=== PATIENT | male | born 1990 | race African-American/Black ===

== ENCOUNTER 2023-08-18 07:18 | Emergency (ER) | payer OTHER, SELFPAY ==
--- NOTE | ~2023-08-18 | CT_ITS ---
EXAMINATION: CT facial bones w con DATE: 08/18/2023 08:34 INDICATION: Dental infection, root canal yesterday TECHNIQUE: Computed tomography (CT) of the facial bones and maxillofacial region was performed with 7 5 cc of Omnipaque 350 intravenous contrast. The dose-length product (DLP) was 427.34 mGy-cm. Automate d exposure control and iterative reconstruction technique were employed. COMPARISON: None. FINDINGS: There appear to be periapical abscesses of the right first and second molars with eruption through the maxilla into the maxillary soft tissues at the second premolar. There is adjacent right f acial soft tissue swelling without discrete abscess identified. There is near complete opacification of the ethmoidal air cells and right sphenoid sinus. There is moderate opacification of the remaining paranasal sinuses. No facial fracture is identified. The globes and orbits are normal. IMPRESSION: 1. . Apical abscesses of the right first and second premolars with interruption into the maxillary so ft tissues at the second premolar. No discrete soft tissue abscess identified. Reviewed, dictated and finalized at location B. ON LINER IMPRESSION: 1. . Apical abscesses of the right first and second premolars with interruption into the maxillary soft tissues at the second premolar. No discrete soft tissu e abscess identified.
[2023-08-18 07:22] VITALS: BP 130/72; PULSE 70; RESP 16; TEMP 36.5; O2SAT 100
[2023-08-18 07:27] VITALS: BP 135/79; PULSE 71; RESP 16; TEMP 37; O2SAT 99
--- NOTE | 2023-08-18 07:54 | ED.DENTAL ---
HPI - Dental/Oral General Chief complaint: Dental/Oral Stated complaint: facial swelling, recent root canal Time Seen by Provider: 08/18/23 07:38 Source: patient and family Limitations: no limitations History of Present Illness HPI Narrative: patient is a 32-year-old male presents to the emergency department accompanied by his mother for right falling. Patient states this swelling started yesterday and he went to his dentist who performed incision and drainage of the right upper posterior region and was told to come to the emergency department if it seemed like the swelling is spreading towards his eye and notes that today when he woke up it seemed like the swelling was worse and started to spread towards his eye. Patient admits to being on amoxicillin that was started yesterday and has received 3 total doses with this 3rd dose this morning. Patient denies any recent injuries, fever, difficulty swallowing, dysphonia, eye pain, vision changes, ear pain, cough, nausea, vomiting. Patient is to some slight pain over his right superior posterior comes 3 patient denies any drainage or discharge or blood coming from his gums. Related Data Allergies Allergy/AdvReac Type Severity Reaction Status Date / Time nickel Allergy Rash Verified 08/18/23 07:32 Review of Systems Review of Systems: A 10 system review of systems was completed on the patient and is negative except for what is stated in the HPI. Nursing and ancillary documentation was reviewed. PMFSH Comments At time of signature, I have reviewed and agree with nursing past medical, surgical, social and family history unless otherwise noted. Please see the nursing chart for further information. There is no relevant family history pertinent to the presenting complaint. Exam Narrative: CONST: No acute distress. Well nourished. HENMT: Head is normocephalic and atraumatic. Moist mucous membranes. No posterior oropharynx erythema. Uvula without deviation or edema. Soft palate without swelling. No sublingual brawny edema or tongue elevation. No periapical tooth swelling or pus expression, no active oral bleeding. No tonsil exudates. Mild right facial swelling of the maxillary region with scant involvement of the right inferior eyelid. No maxillary sinus tenderness to palpation. EYES: No conjunctival icterus, injection, or pallor. PERRL. Extraocular motions intact. NECK: No meningeal signs. No palpable cervical lymphadenopathy. RESP: Able to speak in full sentences. Normal respiratory effort. CTAB. CARDIO: Regular rate. Regular rhythm. 2+ DP and radial pulses bilaterally. GI: Nondistended. No tenderness to palpation. Soft. SKIN: No rashes or lesions noted on exposed skin. NEURO: Oriented x3. Moves all extremities. EXTREM/MSK/BACK: No pedal edema. PSYCH: Normal affect. HENMT: Teeth image: 1. Dental earl present, no tenderness to palpation, mild overlying gingival erythema without palpable fluctuance or discharge or bleeding. Course Vital Signs Vital signs: Vital Signs Temperature 97.7 F 08/18/23 07:22 Pulse Rate 70 08/18/23 07:22 Respiratory Rate 16 08/18/23 07:22 Blood Pressure 130/72 08/18/23 07:22 Pulse Oximetry 100 08/18/23 07:22 Temperature 98.6 F 08/18/23 07:27 Pulse Rate 62 08/18/23 08:37 Respiratory Rate 15 08/18/23 08:37 Blood Pressure 128/89 08/18/23 08:37 Pulse Oximetry 100 08/18/23 08:37 Oxygen Delivery Room Air 08/18/23 07:27 MDM - Dental/Oral MDM Narrative Medical decision making narrative: Patient presents with the above complaint. Initial vitals are remarkable for no significant abnormalities. Physical examination as noted above. Plan discussed: Laboratory analysis, CT facial with contrast, Unasyn IV piggyback, Motrin, 1 L bolus IV fluids, ice pack to the area swelling and elevation of the head of the bed. Should seizure making was performed regarding obtaining further workup versus anti
--- NOTE | 2023-08-18 08:20 | PC.NURSE ---
Pt to CT scan at this time.
[2023-08-18 08:26] LABS: Basophils Percent Auto 0.7 % (0.2-1.2); Eosinophils Absolute Auto 0.4 K/mm3 (0-0.3); Eosinophils Percent Auto 6.9 % (0-4.4); Hematocrit 40.3 % (42.0-52.0); Hemoglobin 13.1 g/dL (14.0-18.0); Immature Granulocyte Absolute 0.01 K/mm3 (0.00-0.031); Immature Granulocyte Percent A 0.2 % (0-0.5); Lymphocytes Percent Auto 28.1 % (18.3-44.2); Mean Corpuscular HGB Conc 32.5 g/dl (32-36); Mean Corpuscular Hemoglobin 29.6 pg (26-34); Mean Platelet Volume 9.9 fl (7.4-10.4); Monocytes Absolute Auto 0.5 K/mm3 (0.1-0.6); Monocytes Percent Auto 8.3 % (2.6-8.5); Neutrophils Absolute Auto 3.4 K/mm3 (1.3-6.7); Neutrophils Percent Auto 55.8 % (45.5-73.1); Platelet Count Result 195 k/mm3 (150-375); Red Blood Count 4.43 M/mm3 (4.6-6.20); Red Cell Distribution Width 13.1 % (11.5-14.5); White Blood Count 6.1 K/mm3 (4.5-10.0)
[2023-08-18] MEDS: IBUPROFEN 600 MG TABLET PO (08:35)
[2023-08-18] MEDS: SODIUM CHLORIDE 0.9% IV 1,000 ML 999 ML IV CONT (08:36)
[2023-08-18] MEDS: AMPICILLIN SULB 3 GM/NS 100 ML 3 GM/100 ML VIAL IVPB (08:36)
[2023-08-18 08:37] VITALS: BP 128/89; PULSE 62; RESP 15; O2SAT 100
[2023-08-18 08:37] LABS: Estimated CRCL calculation 89 ml/min; Estimated Glomerular Filt Rate > 60
[2023-08-18 08:55] LABS: Alanine Aminotransferase 21 U/L (6-50); Albumin Level 3.6 g/dL (3.5-5.1); Alkaline Phosphatase 66 U/L (38-126); Anion Gap 4 mmol/L (8-16); Aspartate Amino Transferase 28 U/L (17-59); Bilirubin,Total 0.7 mg/dL (0.2-1.3); Blood Urea Nitrogen 9 mg/dL (9-20); Calcium 8.7 mg/dL (8.4-10.2); Carbon Dioxide 28 mmol/L (22-30); Chloride 107 mmol/L (98-107); Estimated CRCL calculation 110 ml/min; Estimated Glomerular Filt Rate > 60; Glucose 95 mg/dL (65-110); Potassium 3.6 mmol/L (3.4-5.0); Sodium 139 mmol/L (137-145)
[2023-08-18 10:38] VITALS: BP 122/75; PULSE 64; RESP 15; O2SAT 99
== END 2023-08-18 10:39 | disposition home or self-care (01) ==
PROVIDERS: Emergency Provider Student in an Organized Health Care Education/Training Program
DX: K04.7 Periapical abscess without sinus (principal)
CPT/HCPCS: 36415; 70487; 80053; 85025; 96365; 99284; A9270; J0295; J7030; Q9967

== ENCOUNTER 2023-09-01 10:09 | Emergency (ER) | payer OTHER, SELFPAY ==
--- NOTE | ~2023-09-01 | XR_ITS ---
EXAMINATION: XR lumbar spine 2-3V DATE: 09/01/2023 12:06 INDICATION: Low back pain TECHNIQUE: Anteroposterior and lateral views of the lumbar spine, and cone-down lateral view of the l umbosacral junction were obtained. COMPARISON: None. FINDINGS: No fracture, dislocation, or subluxation. There is mild loss of intervertebral disc space h eight at L5 on S1. The vertebral body heights are maintained. The paravertebral soft tissues are unre markable. Phleboliths are noted in the left pelvis. IMPRESSION: 1. No acute osseous abnormality. Reviewed, dictated and finalized at location B. [employer]
[2023-09-01 10:16] VITALS: BP 126/71; PULSE 55; RESP 18; TEMP 36.5; O2SAT 94
[2023-09-01] MEDS: KETOROLAC (*BKC) 60 MG/2 ML VIAL IM (12:14)
--- NOTE | 2023-09-01 12:49 | ED.BACK ---
HPI - Back Pain/Injury General Chief Complaint: Back Pain/Injury Stated Complaint: R BACK INJURY Time Seen by Provider: 09/01/23 10:50 History of Present Illness HPI Narrative: Patient is a 32-year-old male who presents ER with low back pain. Right-sided greater than left. He was pulling a box off a shelf when he had sudden pain because the boxes heavier than he thought. Pain has increased over last day. Worse with bending forward standing back up. No radiation down the leg. No saddle anesthesia. No difficulty with urination/defecation. No fevers or chills. Related Data Allergies Allergy/AdvReac Type Severity Reaction Status Date / Time nickel Allergy Rash Verified 09/01/23 11:19 Review of Systems Constitutional: Constitutional: Reports no additional constitutional complaints Genitourinary: Genitourinary: Reports no additional male genitourinary complaints Musculoskeletal: Musculoskeletal: Reports back pain, Denies arthralgias and Denies joint swelling Neurologic: Reports system reviewed and no additional complaints, except as documented PMFSH Past Medical History Medical History (Updated 09/01/23 @ 12:58 by Rico Davalos MD) Healthy adult male Surgical History Surgical History (Updated 09/01/23 @ 12:58 by Rico Davalos MD) No history of previous surgery Exam Narrative: GENERAL: Well-appearing, well-nourished, and in no acute distress. HEAD: Normocephalic, atraumatic. ENT: Mucous membranes moist. back: No midline tenderness of the T/L spine. Paraspinal tenderness bilaterally at L4 but worse on the right side. EXTREMITIES: Normal range of motion. No edema. SKIN: Warm, dry, no rash. NEURO: Alert and oriented x3. PSYCH: Normal mood and affect. Course Course Emergency Course: Toradol for pain here. Imaging without acute fracture. Appropriate for discharge home with anti-inflammatories and muscle relaxers. Vital Signs Vital signs: Vital Signs Temperature 97.7 F 09/01/23 10:16 Pulse Rate 55 L 09/01/23 10:16 Respiratory Rate 18 09/01/23 10:16 Blood Pressure 126/71 09/01/23 10:16 Pulse Oximetry 94 09/01/23 10:16 Temperature 97.7 F 09/01/23 10:16 Pulse Rate 55 L 02/21/24 10:16 Respiratory Rate 18 09/01/23 10:16 Blood Pressure 126/71 09/01/23 10:16 Pulse Oximetry 94 09/01/23 10:16 MDM - Back Pain/Injury Imaging Data Radiologist's impression: ITS Impressions Lumbar Spine X-Ray 09/01/23 12:23 IMPRESSION: 1. No acute osseous abnormality. Discharge Plan Discharge Clinical Impression: Strain of lumbar region Patient Disposition: Home, Self-Care Condition: Stable Instructions: Acute Low Back Pain (ED), Lower Back Exercises (ED) Additional Instructions: Please return to the emergency department if you develop severe pain that is not controlled by pain medications or if you are unable to walk because of pain or weakness. Return to the emergency department immediately if you develop fevers, loss of bowel or bladder control (dribbling of urine or having accidents you wouldn't normally have), inability to urinate, numbness of your genital or anal area, or weakness/numbness of your legs or arms as these could all be signs of a serious medical emergency. Prescriptions: New cyclobenzaprine 10 mg tablet 10 mg PO TID PRN (Reason: muscle spasm) Qty: 20 0RF naproxen 375 mg tablet 375 mg PO BID Qty: 14 0RF No Action acetaminophen 500 mg tablet 500 mg PO Q6H PRN (Reason: pain) Qty: 30 0RF amoxicillin-pot clavulanate 875-125 mg tablet 1 tablet PO Q12H 10 Days Qty: 20 0RF Follow-up/Referrals: Caesar Capone MD [Physician] - 1 Week UNKNOWN,DOCTOR [Primary Care Provider] -
== END 2023-09-01 13:15 | disposition home or self-care (01) ==
PROVIDERS: Emergency Provider Emergency Medicine
DX: S39.012A Strain of muscle, fascia and tendon of lower back, initial encounter (principal); X50.0XXA Overexertion from strenuous movement or load, initial encounter
CPT/HCPCS: 72100; 96372; 99283; J1885

== ENCOUNTER 2023-09-10 08:19 | Emergency (ER) | payer OTHER, SELFPAY ==
[2023-09-10 08:35] VITALS: BP 132/78; PULSE 70; RESP 16; TEMP 36.6; O2SAT 95
--- NOTE | 2023-09-10 08:39 | ED.GENADULT ---
HPI - General Adult General Chief complaint: Back Pain/Injury Stated complaint: back pain Time Seen by Provider: 09/10/23 08:28 History of Present Illness HPI narrative: 32-year-old male presenting to the emergency department for evaluation of persistent right paraspinal muscle tightness. Patient reports he had a muscular back injury a few weeks ago and was initially seen in the emergency department. Patient did have follow-up with his occupational health physician yesterday and was cleared to return back to duty. Patient states he is still having some right paraspinal muscle spasm that is worsened with lifting. Patient denies any associated numbness or weakness but patient is requesting light duty since heavy lifting is still exacerbating his back pain. Related Data Allergies Allergy/AdvReac Type Severity Reaction Status Date / Time nickel Allergy Rash Verified 09/01/23 11:19 Review of Systems Review of Systems: All systems reviewed & are unremarkable except as noted in HPI and below PMFSH Past Medical History Medical History (Updated 09/10/23 @ 08:49 by Montana Garcia MD) Healthy adult male Surgical History Surgical History (Updated 09/01/23 @ 12:58 by Rico Davalos MD) No history of previous surgery Exam Narrative: APPEARANCE: Well appearing, no pain, no distress, well-nourished. HEAD: normocephalic, atraumatic. EYES: PERRLA/EOMI, conjunctivae clear. NOSE: Normal no drainage NECK: Supple. No adenopathy, no masses. RESPIRATORY: Airway patent, respirations nonlabored. Clear to auscultation bilaterally, no rales, rhonchi, wheezing. CARDIOVASCULAR: Regular rate and rhythm without murmurs rubs or gallops. ABDOMINAL: Soft, nontender, nondistended, normal bowel sounds MUSCULOSKELETAL: Right paraspinal muscular tenderness with no midline tenderness to palpation NEURO: Alert. Cranial nerves II through XII intact. Good gait. Good coordination SKIN: Warm, dry. Normal Color Course Course Emergency Course: Patient was provided additional Flexeril and encouraged close follow-up with his occupational physician Vital Signs Vital signs: Vital Signs Temperature 98 F 09/10/23 08:35 Pulse Rate 70 09/10/23 08:35 Respiratory Rate 16 09/10/23 08:35 Blood Pressure 132/78 09/10/23 08:35 Pulse Oximetry 95 09/10/23 08:35 Temperature 98 F 09/10/23 08:35 Pulse Rate 70 09/10/23 08:35 Respiratory Rate 16 09/10/23 08:35 Blood Pressure 132/78 09/10/23 08:35 Pulse Oximetry 95 09/10/23 08:35 Medical Decision Making MDM Narrative Medical decision making narrative: 32-year-old male present to the emergency department for evaluation of back pain. Patient did have reproducible muscle spasm and muscular tenderness. Patient was restarted on his cyclobenzaprine encouraged to have close follow-up with occupational health. Patient's neuro exam was negative, no concern for skeletal injury. Vital Signs Vital Signs: Vital Signs Temperature 98 F 09/10/23 08:35 Pulse Rate 70 09/10/23 08:35 Respiratory Rate 16 09/10/23 08:35 Blood Pressure 132/78 09/10/23 08:35 Pulse Oximetry 95 09/10/23 08:35 Temperature 98 F 09/10/23 08:35 Pulse Rate 70 09/10/23 08:35 Respiratory Rate 16 09/10/23 08:35 Blood Pressure 132/78 09/10/23 08:35 Pulse Oximetry 95 09/10/23 08:35 Discharge Plan Discharge Clinical Impression: Back pain Patient Disposition: Home, Self-Care Condition: Stable Instructions: Antibiotic Form Additional Instructions: Continue Tylenol and ibuprofen for pain. Cyclobenzaprine as directed for muscle spasm. Avoid heavy lifting until cleared by your occupational health physician. If you have any worsening symptoms please call or return to the emergency department. Prescriptions: New cyclobenzaprine 10 mg tablet 10 mg PO BID PRN (Reason: muscle spasm) Qty: 14 0RF No Action cyclobenzaprine 10 mg tablet 10 mg
== END 2023-09-10 09:15 | disposition home or self-care (01) ==
PROVIDERS: Emergency Provider Emergency Medicine
DX: M54.9 Dorsalgia, unspecified (principal)
CPT/HCPCS: 99283

== ENCOUNTER 2023-11-02 13:43 | Emergency (ER) | payer OTHER, SELFPAY ==
--- NOTE | ~2023-11-02 | XR_ITS ---
EXAMINATION: XR chest 2V 11/02/2023 15:22 INDICATION: Shortness of breath PROCEDURE: 2 view chest COMPARISON: No prior studies for comparison. FINDINGS: The lungs are clear. The cardiomediastinal silhouette is within normal limits. There are no pleural effusions. There is no pneumothorax suspected. IMPRESSION: 1: NO ACUTE CARDIOPULMONARY DISEASE. Reviewed, dictated and finalized at location B.
[2023-11-02 13:46] VITALS: BP 133/79; PULSE 58; RESP 20; TEMP 36.8; O2SAT 100
--- NOTE | 2023-11-02 14:42 | ED.SOB ---
HPI - SOB/Dyspnea General Chief Complaint: Shortness of Breath/Dyspnea Stated Complaint: SUDDEN ONSET DYSPNEA Time Seen by Provider: 11/02/23 14:24 History of Present Illness HPI Narrative: Patient is the healthy 32-year-old male, frequent marijuana user here with shortness of breath. 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 He notes that if felt like he was taking a lot of short quick breath having difficulty taking big breaths or exhaling. He does note that he was wheezing. He went outside, had minimal improvement of his symptoms an EMS was called by his work. On EMS arrival patient had a significant wheeze, was given a DuoNeb in route and a dose of Solu-Medrol. Patient notes symptoms have significantly improved. He denies any cough, congestion, fever, chills. No recent sick contacts. He notes he was feeling like his normal self when he went into work today. He is unsure if he had any asthma issues when he was a child. Related Data Allergies Allergy/AdvReac Type Severity Reaction Status Date / Time nickel Allergy Rash Verified 09/01/23 11:19 Review of Systems Review of Systems: All systems reviewed & are unremarkable except as noted in HPI and below PMFSH Past Medical History Medical History (Updated 11/02/23 @ 15:47 by Carolyn Blackmon MD) Healthy adult male Surgical History Surgical History (Updated 09/01/23 @ 12:58 by Rico Davalos MD) No history of previous surgery Exam Narrative: GENERAL: Well-appearing, well-nourished, and in no acute distress. HEAD: Normocephalic, atraumatic. EYES: PERRLA and EOMI. ENT: Nares clear. Mucous membranes moist. NECK: Supple. CHEST: Clear to auscultation. No respiratory distress. No wheeze present. HEART: Regular rate and rhythm. Normal peripheral pulses. ABDOMEN: Soft, nontender, nondistended. EXTREMITIES: Normal range of motion. No edema. SKIN: Warm, dry, no rash. NEURO: No focal deficits. Alert and oriented x3. PSYCH: Normal mood and affect. Course Course Emergency Course: Chart review performed. Patient here with shortness of breath. He reportedly was having some wheezing when EMS arrived, received a neb and solumedrol prior to arrival. Patient seen evaluated, nontoxic appearing. Appears to be in no respiratory distress, O2 saturation of 100%. Will do chest x-ray, anticipate discharged. CXR negative. Patient reevaluated, continues to be well appearing with no shortness of breath. Suspect a component of bronchospasm today either due to possible allergies or allergen exposure at work. Will give albuterol inhaler to use over the next few days for shortness of breath or recurrent wheeze. Will refer to on-call primary care doctor. The results of pertinent diagnostic studies and exam findings were discussed. The patient?s provisional diagnosis and plan of care were discussed with the patient and present family. The patient and/or present family expressed understanding of the diagnosis and plan. The nurse was instructed to provide written instructions and appropriate follow-up information. The patient understands their need and responsibility to obtain additional follow-up as instructed. The risks of medications administered and prescribed were discussed with the patient and family present. Vital Signs Vital signs: Vital Signs Temperature 98.2 F 11/02/23 13:46 Pulse Rate 58 L 11/02/23 13:46 Respiratory Rate 20 11/02/23 13:46 Blood Pressure 133/79 11/02/23 13:46 Pulse Oximetry 100 11/02/23 13:46 Oxygen Delivery Room Air 11/02/23 13:46 Temperature 98.2 F 11/02/23 13:46 Pulse Rate 78 11/02/23 15:57 Respiratory Rate 16 11/02/23 15:57 Blood Pressure 129/86 11/02/23 15:57 Pulse Oximetry 98 11/02/23 15:57 Oxygen Delivery Room Air 11/02/23 13:59 MDM - SOB/Dyspnea Imaging Data Radiologist
[2023-11-02 15:57] VITALS: BP 129/86; PULSE 78; RESP 16; O2SAT 98
== END 2023-11-02 15:57 | disposition home or self-care (01) ==
PROVIDERS: Emergency Provider Student in an Organized Health Care Education/Training Program; Referring Provider Emergency Medicine
DX: J98.01 Acute bronchospasm (principal)
CPT/HCPCS: 71046; 99283

== ENCOUNTER 2024-01-28 02:22 | Emergency (ER) | payer OTHER, SELFPAY ==
--- NOTE | ~2024-01-28 | XR_ITS ---
Clinical Indication: Congestion PA and lateral views of the chest: Comparison: 11/02/2023 Findings: The lungs are clear, without evidence of focal consolidation or pleural effusion. Cardiome diastinal silhouette is within normal limits. Bones and soft tissues are unremarkable. Impression: Normal chest. Reviewed, dictated and finalized at location . Impression: Normal chest.
--- NOTE | 2024-01-28 04:16 | ED.GENADULT ---
HPI - General Adult General Chief complaint: Upper Respiratory Infection History of Present Illness HPI narrative: patient is a 33-year-old gentleman who presents emergency department with chief complaint of upper respiratory symptoms. Patient reports that for more than 2 weeks he has had nasal congestion reports that he feels as though at times his breathing cuts off particularly whenever he sleeps. The patient has been seen at [place] and did not get anything done there the patient states that he has not followed up with his primary care provider Related Data Allergies Allergy/AdvReac Type Severity Reaction Status Date / Time nickel Allergy Rash Verified 09/01/23 11:19 Review of Systems Review of Systems: A 10 system review of systems was completed on the patient and is negative except for what is stated in the HPI. Nursing and ancillary documentation was reviewed. PMFSH Past Medical History Medical History Healthy adult male Surgical History Surgical History No history of previous surgery Exam Narrative: GENERAL: Well-appearing, well-nourished, and in no acute distress. HEAD: Normocephalic, atraumatic. EYES: PERRLA and EOMI. ENT: Nares clear, no rhinorrhea or epistaxis. Mucous membranes moist. NECK: Supple. CHEST: Clear to auscultation. No respiratory distress. HEART: Regular rate and rhythm. No murmur heard. Normal peripheral pulses. ABDOMEN: Soft, nontender, nondistended, normal active bowel sounds. EXTREMITIES: Normal range of motion. No edema. SKIN: Warm, dry, no rash. NEURO: No focal deficits. Alert and oriented x3. PSYCH: Normal mood and affect. Course Vital Signs Vital signs: Vital Signs Pulse Oximetry 98 01/28/24 04:24 Oxygen Delivery Room Air 01/28/24 04:24 Pulse Oximetry 98 01/28/24 04:24 Oxygen Delivery Room Air 01/28/24 04:24 Medical Decision Making [facility] Narrative Medical decision making narrative: differential diagnosis includes bronchitis, pneumonia upper respiratory infection chest x-ray showed no focal infiltrate COVID flu and RSV were ordered Vital Signs Vital Signs: Vital Signs Pulse Oximetry 98 01/28/24 04:24 Oxygen Delivery Room Air 01/28/24 04:24 Pulse Oximetry 98 01/28/24 04:24 Oxygen Delivery Room Air 01/28/24 04:24 Lab Data Labs: Lab Results 01/28/24 Range/Units 03:30 Influenza A (RT-PCR) Negative (Negative) Influenza B (RT-PCR) Negative (Negative) RSV (RT-PCR) Negative (Negative) SARS-CoV-2 RNA (RT-PCR) Negative (Negative) Discharge Plan Discharge Clinical Impression: Sinusitis Qualifiers: Sinusitis location: unspecified location Chronicity: acute Recurrence: non-recurrent Qualified Code(s): J01.90 - Acute sinusitis, unspecified Patient Disposition: Home, Self-Care Condition: Stable Instructions: Antibiotic Form, Sinusitis (ED) Prescriptions: New amoxicillin-pot clavulanate 875-125 mg tablet 1 tablet PO Q12H 10 Days Qty: 20 0RF prednisone 20 mg tablet 40 mg PO DAILY 5 Days Qty: 10 0RF No Action cyclobenzaprine 10 mg tablet 10 mg PO TID PRN (Reason: muscle spasm) Qty: 20 0RF naproxen 375 mg tablet 375 mg PO BID Qty: 14 0RF albuterol sulfate 90 mcg/actuation HFA aerosol inhaler 2 puff inhalation QID PRN (Reason: shortness of breath or wheezing) Qty: 6.7 0RF acetaminophen 500 mg tablet 500 mg PO Q6H PRN (Reason: pain) Qty: 30 0RF amoxicillin-pot clavulanate 875-125 mg tablet 1 tablet PO Q12H 10 Days Qty: 20 0RF cyclobenzaprine 10 mg tablet 10 mg PO BID PRN (Reason: muscle spasm) Qty: 14 0RF Follow-up/Referrals: Caesar Capone MD [Physician] - UNKNOWN,DOCTOR [Primary Care Provider] - Time of Disposition: 04:42
[2024-01-28 04:24] VITALS: O2SAT 98
[2024-01-28 04:27] LABS: Influenza A QL RT-PCR Negative (Negative); Influenza B QL RT-PCR Negative (Negative); RSV RNA, RT-PCR Negative (Negative); SARS-CoV-2 RNA PCR Negative (Negative)
[2024-01-28 04:47] VITALS: BP 131/82; PULSE 60; RESP 19; O2SAT 97
== END 2024-01-28 04:49 | disposition home or self-care (01) ==
PROVIDERS: Emergency Provider Emergency Medicine
DX: J01.90 Acute sinusitis, unspecified (principal); Z20.822 Contact with and (suspected) exposure to COVID-19
CPT/HCPCS: 71046; 87637; 99283

== ENCOUNTER 2024-07-11 01:55 | Emergency (ER) | payer SELFPAY ==
--- NOTE | ~2024-07-11 | XR_ITS ---
Clinical Indication: Cough PA and lateral views of the chest: Comparison: 01/28/2024 Findings: The lungs are clear, without evidence of focal consolidation or pleural effusion. Cardiome diastinal silhouette is within normal limits. Bones and soft tissues are unremarkable. Impression: Normal chest. Reviewed, dictated and finalized at location . LATIVE EFFECTS ANALYST Impression: Normal chest.
[2024-07-11 02:40] LABS: Strep Group A RT-PCR NOT DETECTED (Negative)
[2024-07-11 02:51] LABS: Influenza A QL RT-PCR Negative (Negative); Influenza B QL RT-PCR Negative (Negative); RSV RNA, RT-PCR Negative (Negative); SARS-CoV-2 RNA PCR Negative (Negative)
[2024-07-11 05:35] VITALS: BP 129/80; PULSE 71; RESP 16; TEMP 36.5; O2SAT 96
[2024-07-11 06:35] VITALS: O2SAT 98
--- NOTE | 2024-07-11 08:08 | ED_ITS ---
HPI - URI/Sore Throat General Chief Complaint: Upper Respiratory Infection Stated Complaint: dry cough x 1 week Time Seen by Provider: 07/11/24 08:06 Source: patient and other Mode of arrival: ambulatory Limitations: no limitations History of Present Illness HPI Narrative: Patient presents with report of dry cough x1 week and nasal congestion of approximately 5 months duration. He though his symptoms might be due to allergies and has been taking Mucinex. Then he was prescribed sterois and antibiotics given concern for sinusitis and he states he improved with that but his symptoms came back. Took a home covid and flu test which were negative. No fever. No underlying respiratory condition like asthma. N Related Data Allergies Allergy/AdvReac Type Severity Reaction Status Date / Time nickel Allergy Rash Verified 07/11/24 08:00 [facility] Past Medical History Medical History Healthy adult male Surgical History Surgical History No history of previous surgery Exam Narrative: GENERAL: Well-appearing, well-nourished, and in no acute distress although appears acutely unwell (non-toxic). HEAD: Normocephalic, atraumatic. No pain with percussion of sinuses. EYES: Non injected, non icteric ENT: No rhinorrhea or epistaxis. Slight congestion in very superior aspect of left naris. No polyps or friable mucosa. NECK: Supple. CHEST: Speaking in full sentences. No respiratory distress. Slight expiratory wheeze on exam, best appreciated on the left. HEART: Regular rate and rhythm. . ABDOMEN: Soft, nondistended. EXTREMITIES: Normal range of motion. No lower extremity edema. SKIN: Warm, dry, no rash. NEURO: No focal deficits. Alert and oriented x3. PSYCH: Normal mood and affect. Course Vital Signs Vital signs: Vital Signs Temperature 97.7 F 07/11/24 05:35 Pulse Rate 71 07/11/24 05:35 Respiratory Rate 16 07/11/24 05:35 Blood Pressure 129/80 07/11/24 05:35 Pulse Oximetry 96 07/11/24 05:35 Temperature 98.1 F 07/11/24 08:50 Pulse Rate 66 07/11/24 08:50 Respiratory Rate 19 07/11/24 08:50 Blood Pressure 121/78 07/11/24 08:50 Pulse Oximetry 97 07/11/24 08:50 Oxygen Delivery Room Air 07/11/24 06:35 MDM - URI/Sore Throat MDM Narrative Medical decision making narrative: Patient presents with a dry cough x1 week as well as nasal congestion for approximately 5 months. In the emergency department they are afebrile with vital signs within normal limits. Work up generally unremarkable. He does have some wheezes on exam, primarily on the left. Will give DuoNeb treatment as well as a one time dose of IM steroid in the ED and cough medicine. We discussed various cough medications and their role/limited efficacy. Will treat his cough as bronchitis given no radiographic evidence of pneumonia. Will prescribed various medications for symptoms including albuterol inhaler for wheeze. Encouraged to follow up with PCP in the outpatient setting for his chronic nasal congestion if it persists after these symptoms are acutely treated. Provided referral contact information for one. Discharged in stable condition. Differential Diagnosis Differential diagnosis: Likely upper respiratory infection, sinusitis, viral infection, bronchitis, influenza and other (seasonal/environmental allergies; pneumonia) Lab Data Attestation: I reviewed the patient's lab results. Labs: Lab Results 07/11/24 Range/Units 02:08 Influenza A (RT-PCR) Negative (Negative) Influenza B (RT-PCR) Negative (Negative) RSV (RT-PCR) Negative (Negative) SARS-CoV-2 RNA (RT-PCR) Negative (Negative) Group A Strep (PCR) Not detected (Negative) Imaging Data Radiologist's impression: Impressions Chest X-Ray 07/11/24 06:23 Impression: Normal chest. Discharge Plan Discharge Clinical Impression: Bronchitis with wheezing, Chronic nasal congestion Patient Disposition: Home, Self-Care Condition: Stable Instructions: Antibiotic Form, Decongestant/Expectorant (By mouth), Acute Bronchitis (ED), Wheezing (ED) Additional Instructions: As we discussed, you tested negative for strep, influenza a, influenza B, COVID, and RSV. Your chest x-ray did not show a pneumonia. You have bronchitis with some evidence of wheezes. Take the medications as prescribed. For the chronic nasal congestion, follow-up with your primary care physician. If you do not have 1 the name of the doctors listed below. Return to the emergency department with any new or worsening symptoms. Rest and maintain your hydration in the interim. Patient Language: Citizen Of [place] Prescriptions: New ProAir RespiClick 90 mcg/actuation aerosol powdr breath activated 1 inh inhalation Q4-6H PRN (Reason: shortness of breath or wheezing) Qty: 1 0RF benzonatate 100 mg capsule 100 mg PO BID PRN (Reason: cough) Qty: 20 0RF dextromethorphan HBr 10 mg/5 mL liquid 10 mg PO QHS PRN (Reason: cough) Qty: 118 0RF guaifenesin 200 mg tablet 200 mg PO QID PRN (Reason: cough) Qty: 30 0RF No Action cyclobenzaprine 10 mg tablet 10 mg PO TID PRN (Reason: muscle spasm) Qty: 20 0RF naproxen 375 mg tablet 375 mg PO BID Qty: 14 0RF albuterol sulfate 90 mcg/actuation HFA aerosol inhaler 2 puff inhalation QID PRN (Reason: shortness of breath or wheezing) Qty: 6.7 0RF acetaminophen 500 mg tablet 500 mg PO Q6H PRN (Reason: pain) Qty: 30 0RF amoxicillin-pot clavulanate 875-125 mg tablet 1 tablet PO Q12H 10 Days Qty: 20 0RF cyclobenzaprine 10 mg tablet 10 mg PO BID PRN (Reason: muscle spasm) Qty: 14 0RF amoxicillin-pot clavulanate 875-125 mg tablet 1 tablet PO Q12H 10 Days Qty: 20 0RF prednisone 20 mg tablet 40 mg PO DAILY 5 Days Qty: 10 0RF Follow-up/Referrals: Caesar Capone MD [Physician] - UNKNOWN,DOCTOR [Primary Care Provider] - Stand Alone Forms: Work/School Release IP Time of Disposition: 08:22
[2024-07-11] MEDS: IPRATROPIUM 0.5 MG/ALBUTEROL SULFATE 2.5 MG AMPUL.NEB 3 ML INHALATION (08:32)
[2024-07-11 08:35] VITALS: PULSE 89; RESP 20
[2024-07-11 08:40] VITALS: PULSE 93; RESP 20
[2024-07-11] MEDS: guaiFENesin/CODEINE (*CRX) 200/20 MG 10 ML SYRUP PO (08:44)
[2024-07-11] MEDS: methylPREDNISolone SOD SUCC 125 MG VIAL IM (08:45)
[2024-07-11] MEDS: BENZONATATE 100 MG CAPSULE PO (08:49)
[2024-07-11 08:50] VITALS: BP 121/78; PULSE 66; RESP 19; TEMP 36.7; O2SAT 97
--- OUTSIDE RECORDS SUMMARY | 2024-07-18 02:28 | XMS_ITS | Clinical Summary ---
Author Organization [facility] Address [address] [place] [address] Care Team Providers Care Pipe Fitter Name Role Phone Caitlyn Bolden DO Primary Care Provider [phone]- [phone] Allergies Active Allergy Reactions Criticality Noted Date Comments Nickel Rash Medium 03/15/2022 Tree Nuts Itching Low 11/25/2023 Medications albuterol HFA (PROVENTIL HFA,VENTOLIN HFA,PROAIR HFA) 90 mcg/actuation inhaler Inhale 2 puffs every 4 (four) hours as needed for wheezing 1 each 3 Active cetirizine (ZyrTEC) 10 mg tablet Take 1 tablet (10 mg total) by mouth daily as needed for allergies (Postnasal drip, cough) 30 tablet 3 Active pseudoephedrine (SUDAFED) 30 mg tabletIndicatio ns:Nasal Congestion Take 1 tablet (30 mg total) by mouth every 6 (six) hours as needed for congestion (Postnasal drip) Do not take before bed. 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 Gender Identity Not on file Sexual Orientation Not on file Obstetrics History Last Filed Vital Signs Vital Sign Reading Time Taken Comments Blood Pressure 118/79 11/25/2023 10:07 AM CDT Pulse 65 11/25/2023 10:07 AM CDT Temperature 36.2 ??C (97.2 ??F) 11/25/2023 1 0:07 AM CDT Respiratory Rate 20 11/25/2023 10:0 7 AM CDT Oxygen Saturation 97% 01/27/2024 2:3 0 PM CDT albuterol neb with PFT per protocol Inhaled Oxygen Concentration - - Weight 73.1 kg (161 lb 3.2 oz) 11/25/2023 10:07 AM CDT Height 165.1 cm (5' 5 ) 11/11/2022 8:19 PM CDT Body Mass Index 26.83 11/11/2022 8:19 PM CDT Plan of Treatment Health Maintenance Due Date Last Done Comments Depression Screening 1992 Hepatitis C Screening 1992 Varicella Vaccines (1 of 2 - 13+ 2-dose series) 2005 Regular Well Visit/Exam 18-64 2010 DTaP/Tdap/Td Vaccine (7 - Td or Tdap) 04/27/2016 04/27/2006, 12/20/1997, 04/01/1994, Additional history exists Influenza Vaccine (#1) 2024 04/27/2006 HPV Vaccines Aged Out No longer eligi ble based on patient's age to complete this topic Pneumococcal vaccine <65 Aged Out No longer eligible based on patient's age to complete this topic Insurance [facility] Care Teams Pipe Fitter Relationship Specialty Start Date End Date Caitlyn Bolden DO [address] [place] [address] PCP - General Internal Medicine 01/04/21
--- OUTSIDE RECORDS SUMMARY | 2024-07-18 02:29 | XMS_ITS | Encounter Summary ---
Author Organization [facility] Address [address] [place] [address] Care Team Providers Care Wire Twister Name Role Phone Caitlyn Bolden DO Primary Care Provider +1- [phone] Reason for Visit * Reason Comments Groin Pain I don't know I thin k I was trying to be cute...I had unprotected sex, and now the tip [of my penis] is burning. Pt arrives to ED with complaints of penile pain, described as a burning sensation for approximately 4x days. Increased pain with urination. Denies any other acute complaints at this time such as penile discharge. 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 Gender Identity Not on file Sexual Orientation Not on file documented as of this encounter Last Filed Vital Signs Vital Sign Reading Time Taken Comments Blood Pressure 127/83 01/04/2021 8:59 AM CDT Pulse 62 01/04/2021 8:59 AM CDT Temperature 36.9 ??C (98.5 ??F) 01/04/2021 8:59 AM CD T Respiratory Rate 18 01/04/2021 8:59 AM CDT Oxygen Saturation 97% 01/04/2021 8:59 AM CDT Inhaled Oxygen Concentration - - Weight 76.6 kg (168 lb 14 oz) 01/04/2021 8:59 AM CDT Height 165.1 cm (5' 5 ) 01/04/2021 8:59 AM CDT Body Mass Index 28.1 01/04/2021 8:59 AM CDT documented in this encounter Discharge Instructions * Discharge Instructions* Selam Vaughn PA - 01/04/2021 9:44 AM CDT Take all mediation as directed. Return to ER immediately for any new or worsening symptoms. Follow-up as recommended is mandatory You MUST follow up for further evaluation of all laboratory findings. Have your physician obtain records from this visit and address all the incidental abnormal findings. This may include final results of lab testing, cultures, which may not have been available during the time of the visit. [facility] (Hepatitis C testing, HIV testing) [address] [place] [address], [place] [phone] [facility] (Hepatitis C testing, HIV testing) Walk in services, no residecne required, Fee, ID required [address], [place]. [phone] [facility] (Hepatitis C Testing, HIV testing) Appointments, fee, no residency, conventional/rapid testing [address], [place]. [phone] [facility] (HIV testing, Hepatitis testing, gardisil, , control, STDs) [address] [place]. [address] Appointments only, no residence required, fee, Picture ID [facility] [address], [place]. [phone] Appointment, fee, photo ID [facility] [address] [place]. [address] Appointment, fee, sliding scale, picture ID documented in this encounter Medications at Time of Discharge doxycycline hyclate 100 mg capsule Take 1 tablet/capsu le (100 mg total) by mouth 2 (two) times a day for 7 days 14 tablet 01/04/2021 01/11/2021 documented as of this encounter Ordered Prescriptions Prescription Sig Dispense Quantity Refills Last Filled Start Date End Date doxycycline hyclate 100 mg capsule Take 1 tablet/caps ule (100 mg total) by mouth 2 (two) times a day for 7 days 14 tablet 01/04/2021 01/11/2021 documented in this encounter Discharge Disposition Disposition Code Departure Means Destination Discharge to home or self care documented in this encounter ED Notes * Selam Vaughn PA - 01/04/2021 9:20 AM CDT HPI No chief complaint on file. HPI 9:21 AM Félix Fernandes is a 30 y.o. male presenting to the ED c/o STD testing. Pt had unprotected sex and has dysuria at tip of penis with urination. Denies any drainage or other symptoms Patient History: No past medical history on file. No past surgical history on file. No family history on file. Social History Tobacco Use ??? Smoking status: Not on file Substance Use Topics ??? Alcohol use: Not on file ??? Drug use: Not on file No current facility-administered medications for this encounter. No current outpatient medications on file. Review of Systems Review of Systems Constitutional: Negative for chills and fever. HENT: Negative for ear pain and sore throat. Eyes: Negative for pain and visual disturbance. Respiratory: Negative for cough and shortness of breath. Cardiovascular: Negative for chest pain and palpitations. Gastrointestinal: Negative for abdominal pain and vomiting. Genitourinary: Negative for dysuria and hematuria. Musculoskeletal: Negative for arthralgias and back pain. Skin: Negative for color change and rash. Neurological: Negative for seizures and syncope. All other systems reviewed and are negative. All systems reviewed and are neg or non contributory for this patients presentation today other than as stated in the HPI . Physical Exam ED Triage Vitals [01/04/21 0859] Temp Pulse Resp BP SpO2 36.9 ??C (98.5 ??F) 62 18 127/83 97 % Temp src Heart Rate Source Patient Position BP Location FiO2 (%) -- -- Sitting Right arm -- Physical Exam Vitals and nursing note reviewed. Constitutional: Appearance: He is well-developed. Comments: Pleasant male, no acute distress HENT: Head: Normocephalic and atraumatic. Eyes: Conjunctiva/sclera: Conjunctivae normal. Cardiovascular: Rate and Rhythm: Normal rate and regular rhythm. Heart sounds: Normal heart sounds. No murmur heard. Pulmonary: Effort: Pulmonary effort is normal. No respiratory distress. Breath sounds: Normal breath sounds. Abdominal: Palpations: Abdomen is soft. Tenderness: There is no abdominal tenderness. Musculoskeletal: Cervical back: Neck supple. Skin: General: Skin is warm and dry. Neurological: Mental Status: He is alert and oriented to person, place, and time. Procedures MDM Labs Reviewed - No data to display No orders to display BP 127/83 (BP Location: Right arm, Patient Position: Sitting) Pulse 62 Temp 36.9 ??C (98.5 ??F) Resp 18 Ht 165.1 cm (5' 5 ) Wt 76.6 kg (168 lb 14 oz) SpO2 97% BMI 28.10 kg/m?? ED Course: Treated for gonorrhea and chlamydia. All findings discussed with patient. Non toxic appearing, vitals stable. Patient stable for discharge home. Given return to ER precautions Disposition: home This examination was transcribed using the [employer] voice recognition system without human real estate appraiser supervisor. In an effort to expedite patient care, this report has not been adjusted for typographical, grammatical, and syntax by a trained medical scribe. Clinical Impression: STD (male) Selam Vaughn PA 01/04/21 1113 Cosigned by Rico Cotto DO at 01/05/2021 11:32 AM CDT documented in this encounter Plan of Treatment Not on file documented as of this encounter Procedures Procedure Name Priority Date/Time Associated Diagnosis Comments N. GONORRHOEAE/C. TRACHOMATIS AMPLIFICATION STAT 01/04/2021 9:29 AM CDT TRICHOMONAS VAGINALIS PCR STAT 01/04/2021 9:29 AM CDT documented in this encounter Results * (ABNORMAL) N. gonorrhoeae/C. trachomatis Amplification Urine (01/04/2021 9:29 AM CDT) Pathologist [facility] C. trachomatis Detected( A) Not Detected EILEEN SALINAS Comment:Testing performed by : [facility], [address] [place] [address]., [address] N. gonorrhoeae Detected( A) Not Detected EILEEN SALINAS Comment: Testing performed by the [facility]. This assay detects Chlamydia trachomatis and Neisseria gonorrhoeae by nucleic acid amplification testing (NAAT). This test is approved by the [facility] Food and Drug Administration and the performance characteristics have been verified by the laboratory. The performance characteristics of this test have not been evaluated in women or individuals less than 16 years of age. Testing performed by: [facility], [address] [place] [address]., [address] Urine (None) 01/04/2021 9:29 AM CDT 01/05/2021 9:18 PM CDT Sel[facility] MICROBIOLOGY - GENERAL O RDERABLES Final Result EILEEN SALINAS [facility] Department [place] [address] * Trichomonas vaginalis PCR Urine (01/04/2021 9:29 AM CDT) Pathologist [facility] Trichomonas DNA Not Detected Not Detected EILEEN SALINAS Comment: Interpretive Data Testing performed by [facility] using Nucleic Acid Amplification with the [employer] ([place] Xpert TV Assay. ??This assay detects DNA from Trichomonas vaginalis using Real-Time PCR. ??This test is cleared by the [facility] Food and Drug Administration for endocervical swabs, vaginal swabs, female urine (first-catch), and male urine (first-catch). ??The performance characteristics for these specimen types have been verified by the [facility]. ??Excess blood in specimens may be inhibitory and result in false negative results. ??The performance of this test has not been evaluated in women or individuals less than 18 years of age. Current Interpretive Data was last revised on 2019. Testing performed by: [facility], [address] [place]., [address] Urine 01/04/2021 9:29 AM CDT 01/04/2021 11:26 AM CDT us Selam [facility] MICROBIOLOGY - GENERAL O RDERABLES Final Result EILEEN [address] [facility] Department [place] [address] documented in this encounter Visit Diagnoses Diagnosis STD (male)- Primary documented in this encounter Administered Medications Inactive Administered Medications - up to 3 most recent administrations Medication Order MAR Action Action Date Dose Rate Site cefTRIAXone (ROCEPHIN) 250 mg/mL intramuscular injection 500 mg 500 mg, intramuscular, Once, On 01/04/21 at 0922, For 1 dose, Dilute vial with 1.8 mL of sterile water for a concentration of 250 mg/mL., Indications: Sexually Transmitted InfectionIndications:Sexuall y Transmitted Infection Given 01/04/2021 11:06 AM CDT 500 mg Right Deltoid lidocaine PF (XYLOCAINE) 10 mg/mL (1 %) preservative free injection - ADS Override Pull Starting on 01/04/21 at 1100, For 1 dose, Created by cabinet override Given 01/04/2021 11:07 AM CDT 50 mg Right Deltoid documented in this encounter Active and Recently Administered Medications Times are shown in CDT. Scheduled Medication Order 01/02/2021 01/03/2021 01/04/2021 cefTRIAXone (ROCEPHIN) 250 mg/mL intramuscular injection 500 mg (COMPLETED) 500 mg, intramuscular, Once, On 01/04/21 at 0922, For 1 dose, Dilute vial with 1.8 mL of sterile water for a concentration of 250 mg/mL., Indications: Sexually Transmitted Infection 1106 (Given - Provid er: Mehdi Quinn RN) No Frequency Medication Order 01/02/2021 01/03/2021 01/04/2021 lidocaine PF (XYLOCAINE) 10 mg/mL (1 %) preservative free injection - ADS Override Pull (COMPLETED) Starting on 01/04/21 at 1100, For 1 dose, Created by cabinet override 1107 (Given - Provid er: Mehdi Quinn RN) documented in this encounter Care Teams Wire Twister Relationship Specialty Start Date End Date Caitlyn Bolden DO [facility] [place], [place] [id number] PCP - General Internal Medicine 01/04/21 documented as of this encounter
--- OUTSIDE RECORDS SUMMARY | 2024-07-18 02:29 | XMS_ITS | Encounter Summary ---
Author Organization [facility] Address [address] [place] [address] Care Team Providers Care Exterior Work Helper Name Role Phone Unavailable Primary Care Provider Unavailabl e Encounter Details Date Type Department Care Team (Late st Contact Info) Description 11/30/2023 External Device Data [facility] ABSTRACTION Provider, Abstract NO ADDRESS ON FILE Social History Tobacco Use Types Packs/Day Years Used Date Smoking Tobacco: Never Assessed Sex and Gender Information Value Date Recorded Sex Assigned at Not on file Gender Identity Not on file Sexual Orientation Not on file documented as of this encounter Plan of Treatment Not on file documented as of this encounter Visit Diagnoses Not on filedocumented in this encounter
--- OUTSIDE RECORDS SUMMARY | 2024-07-18 02:29 | XMS_ITS | Encounter Summary ---
Author Organization [facility] Address [address] [place] [address] Care Team Providers Care Legal Transcriber Name Role Phone Unavailable Primary Care Provider Unavailabl e Encounter Details Date Type Department Care Team (Late st Contact Info) Description 11/16/2023 External Device Data [facility] ABSTRACTION Provider, Abstract [...]
--- OUTSIDE RECORDS SUMMARY | 2024-07-18 02:29 | XMS_ITS | Encounter Summary ---
Author Organization [facility] Healthcare Address [address] [place] [address] Care Team Providers Care Medical And Scientific Illustrator Name Role Phone Caitlyn Bolden DO Primary Care Provider [phone]- [phone] Reason for Referral * Procedure (Routine) - Closed Specialty Diagnoses / Procedures Referred By Contac t Referred To Contact Diagnoses SOB (shortness of breath) Wheezing Procedures Pulmonary Function Test -[facility]; Full PFT in PFT Lab w/Stress Ox/6 Min Walk Test Alexia Kong MD [address] [facility] [address] [place] [address] Phone: tel: fax: Referral ID Status Reason Start Date Expiration Date Visits Re quested Visits Authorized [id number] Closed 11/25/2023 12/24/2024 1 1 Reason for Visit * Reason Comments New Patient * Consultation (Routine) - Pending Review Specialty Diagnoses / Procedures Referred By Contac t Referred To Contact Pulmonary Disease / Pulmonology Diagnoses SOB (shortness of breath) Wheezing Caesar Capone MD [address] [place] [address] Phone: tel: fax: [facility] Medical [facility] Pulmonary [place] [address] [place] [address] [place] [id number] Phone: tel: fax: Referral ID Status Reason Start Date Expiration Date Visits Requested Visits Authorized [id number] Pending Review Specialty Services Required 11/08/2023 12/08/2024 1 1 Encounter Details Date Type Department Care Team (Late st Contact Info) Description 11/25/2023 10:00 AM CDT Office Visit [facility] Pulmonology [address] [facility] [address] [place] [address] Alexia Kong MD [address] [facility] [address] [place] [address] SOB (shortness of breath); Wheezing Social History Tobacco Use Types Packs/Day Years Used Date Smoking Tobacco: Never Smokeless Tobacco: Never Comments:Pt stated he smokes Marijuana Personal Safety Answer Date Recorded Getting School Help Needed Not on file 11/22 Sex and Gender Information Value Date Recorded Sex Assigned at Not on file 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 Gender Identity Not on file Sexual Orientation Not on file documented as of this encounter Last Filed Vital Signs Vital Sign Reading Time Taken Comments Blood Pressure 118/79 11/25/2023 10:07 AM CDT Pulse 65 11/25/2023 10:07 AM CDT Temperature 36.2 ??C (97.2 ??F) 11/25/2023 10:07 AM C DT Respiratory Rate 20 11/25/2023 10:07 AM CDT Oxygen Saturation 97% 11/25/2023 10:07 AM CDT Inhaled Oxygen Concentration - - Weight 73.1 kg (161 lb 3.2 oz) 11/25/2023 10:07 AM CDT Height - - Body Mass Index 26.83 11/11/2022 8:19 PM CDT documented in this encounter Progress Notes * Alexia Kong MD - 11/25/2023 10:00 AM CDT Images from the original note were not included. PULMONARY CLINIC NOTE Visit Date: 11/25/2023 INTERVAL HISTORY: Presents today for follow-up of new HPI: Patient is a 32 y.o. male who presented on 11/25/2023 for evaluation of dyspnea. Had some exposure to chemical fumes at work in October 2023. [facility] given breathing treatment and discharged with albuterol. Has morning and nightly chest tightness and dyspnea. Uses albuterol, helps sometimes No coughing or wheezing No rhinitis Exposure and Social History: Never smoker or vaping. Smokes marijuana few times per week. Social etoh. Works as warehouse director. No pets. Review of Systems: OBJECTIVE: Physical Exam: Vitals: 11/25/23 1007 BP: 118/79 BP Location: Right arm Patient Position: Sitting Pulse: 65 Resp: 20 Temp: 36.2 ??C (97.2 ??F) SpO2: 97% Weight: 73.1 kg (161 lb 3.2 oz) Respiratory: mostly clear Musculoskeletal/Extremities: No Cyanosis Data Review: Pulmonary function testing: ASSESSMENT AND PLAN Dyspnea and wheezing Possibly has asthma especially given he is got significant allergies though other etiologies also possible Continue p.r.n. albuterol for now Check PFT and labs Atopy and allergies Check IgE. Possibly add Singulair in the future Alexia Kong MD Pulmonary Medicine There may be syntax/grammatical errors in this note due to the use of voice recognition software. documented in this encounter Plan of Treatment Scheduled Orders Name Type Priority Associated Diagnoses Orde r Schedule CBC with auto differential Lab Routine SOB (shortness of breath) Wheezing Expected: 11/25/2023, Expires: 11/24/2024 IgE Lab Routine SOB (shortness of breath) Wheezing Expected: 11/25/2023, Expires: 11/24/2024 [id number] phenotype Lab Routine SOB (shortness of breath) Wheezing Expected: 11/25/2023, Expires: 11/24/2024 [id number]-[id number] Lab Routine SOB (shortness of breath) Wheezing Expected: 11/25/2023, Expires: 11/24/2024 Pro B-type natriuretic peptide Lab Routine SOB (shortness of breath) Wheezing Expected: 11/28/2023, Expires: 11/24/2024 documented as of this encounter Results * Pulmonary Function Test - (01/27/2024 2:44 PM CDT) FVC POST 4.54 L 01/27/2024 2:35 PM CDT [facility] FEV1 POST 3.46 L 01/27/2024 2:35 PM CDT [facility] [id number] 76.07 % 01/27/2024 2:35 PM CDT [facility] BQH40-37% POST 2.99 L/s 01/27/2024 2:35 PM CDT [facility] PEF POST 5.90 L/s 01/27/2024 2:35 PM CDT [facility] DLCOc SB 24.27 ml/(min*mm Hg) 01/27/2024 2:35 PM CDT [facility] DLCO/VA PRE 5.00 ml/(min*mm Hg*L) 01/27/2024 2:35 PM CDT [facility] VA 4.85 L 01/27/2024 2:35 PM CDT [facility] TLC PRE 5.48 L 01/27/2024 2:35 PM CDT [facility] VC PRE 4.11 L 01/27/2024 2:35 PM CDT [facility] IC PRE 3.08 L 01/27/2024 2:35 PM CDT [facility] FRC PL PRE 2.39 L 01/27/2024 2:35 PM CDT [facility] ERV PRE 1.02 L 01/27/2024 2:35 PM CDT [facility] RV PRE 1.37 L 01/27/2024 2:35 PM CDT [facility] RAW PRE 7.77 cmH2O*s/L 01/27/2024 2:35 PM CDT [facility] VTG 3.24 L 01/27/2024 2:35 PM CDT [facility] FVC PRE 3.73 L 01/27/2024 2:35 PM CDT [facility] FEV1 PRE 2.58 L 01/27/2024 2:35 PM CDT [facility] [id number] 69.20 % 01/27/2024 2:35 PM CDT [facility] CFH54-10% PRE 1.86 L/s 01/27/2024 2:35 PM CDT [facility] PEF PRE 5.90 L/s 01/27/2024 2:35 PM CDT [facility] Anatomical Region Laterality Modality PFT 01/27/2024 1:30 PM CDT Narrative 01/28/2024 12:17 PM CDT Spirometry data demonstrates obstructive ventilatory defect with a strong positive bronchodilator response. Lung volumes and DLCO are normal. 6 minute walk test - ambulatory O2 assessment study was performed. Patient maintained oxygen saturation within normal range and did not require supplemental oxygen with rest or ambulation. Electronically signed by Walter Velasquez MD, [facility] Pulmonary and Critical Care Medicine [facility] Medical Group us Alexia Kong MD PFT ORDERABLES Final Result documented in this encounter Visit Diagnoses Diagnosis SOB (shortness of breath) Shortness of breath Wheezing SOB (shortness of breath) Shortness of breath Wheezing documented in this encounter Orders Outpatient Referral Count Last Ordered Date Fir st Ordered Date AMB REFERRAL TO PULMONOLOGY 1 11/25/2023 documented in this encounter Care Teams Medical And Scientific Illustrator Relationship Specialty Start Date End Date Caitlyn Bolden DO [facility] [place] [address] PCP - General Internal Medicine 01/04/21 documented as of this encounter
--- OUTSIDE RECORDS SUMMARY | 2024-07-18 02:29 | XMS_ITS | Encounter Summary ---
Author Organization [facility] Healthcare Address [address] [place] [address] Care Team Providers Care Bow Stapler Name Role Phone Caitlyn Bolden DO Primary Care Provider [phone]- [phone] Reason for Referral * Procedure (Routine) - Closed Specialty Diagnoses / Procedures Referred By Andres perales Referred To Contact Diagnoses SOB (shortness of breath) Wheezing Procedures Pulmonary Function Test -[facility]; Full PFT in PFT Lab w/Stress Ox/6 Min Walk Test Alexia Kong MD [address] [facility] [address] [place] [place] [address] Phone: tel: fax: Referral ID Status Reason Start Date Expiration Date Visits Re quested Visits Authorized [id number] Closed 11/25/2023 12/24/2024 1 1 Reason for Visit * Procedure (Routine) - Closed Specialty Diagnoses / Procedures Referred By Andres perales Referred To Contact Diagnoses SOB (shortness of breath) Wheezing Procedures Pulmonary Function Test -[facility]; Full PFT in PFT Lab w/Stress Ox/6 Min Walk Test Alexia Kong MD [address] [facility] [address] [place] [place] [id number] Phone: tel: fax: Referral ID Status Reason Start Date Expiration Date Visits Re quested Visits Authorized [id number] Closed 11/25/2023 12/24/2024 1 1 Encounter Details Date Type Department Care Team (Latest Contact Info) Description 01/27/2024 1:20 PM CDT - 01/27/2024 11:59 PM CDT Hospital Encounter [facility] Respiratory [facility] [place] [address] SOB (shortness of breath); Wheezing Discharge Disposition: Discharge to home or self care Social History Tobacco Use Types Packs/Day Years Used Date Smoking Tobacco: Never Smokeless Tobacco: Never Comments:Pt stated he smokes Marijuana Personal Safety Answer Date Recorded Getting School Help Needed Not on file 11/22 Sex and Gender Information Value Date Recorded Sex Assigned at Not on file 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 Gender Identity Not on file Sexual Orientation Not on file documented as of this encounter Last Filed Vital Signs Vital Sign Reading Time Taken Comments Blood Pressure - - Pulse - - Temperature - - Respiratory Rate - - Oxygen Saturation 97% 01/27/2024 2:30 PM CDT albuterol neb with PFT per protocol Inhaled Oxygen Concentration - - Weight - - Height - - Body Mass Index - - documented in this encounter Medications at Time of Discharge cetirizine (ZyrTEC) 10 mg tablet Take 1 tablet (10 mg total) by mouth daily as needed for allergies (Postnasal drip, cough) 30 tablet 11/12/2022 pseudoephedrine (SUDAFED) 30 mg tabletIndication s:Nasal Congestion Take 1 tablet (30 mg total) by mouth every 6 (six) hours as needed for congestion (Postnasal drip) Do not take before bed. Can cause insomnia 15 tablet 11/12/2022 documented as of this encounter Discharge Disposition Disposition Code Departure Means Destination Discharge to home or self care documented in this encounter Progress Notes * Magui Woodruff, PLANNING SUPERVISOR - 01/27/2024 2:40 PM CDT Six minute walk test SPO2 = 95-97%. Not a fall risk. No O2 required. Walked 1030 feet and without any c/o sob. 01/27/24 1330 Resting Information Resting HR. 58 bpm Resting SPO2 97 % Oxygen Setting room air Ambulation Trials to Assess Desaturation to 88% Activity 1: Ambulated (feet) 1030 feet Oxygen Setting #1 room air SPO2 (%) #1 95 % Post Ambulation Assessment HR Post Assessment 90 bpm RR Post Assessment 16 breaths/m Post Assessment Recommendation No O2 required $ Home O2 Assessment Yes documented in this encounter Plan of Treatment Not on file documented as of this encounter Procedures Procedure Name Priority Date/Time Associated Diagnosis Comments PULMONARY FUNCTION TEST (PFT) Routine 01/27/2024 2:44 PM CDT SOB (shortness of breath) Wheezing documented in this encounter Results * Pulmonary Function Test - (01/27/2024 2:44 PM CDT) FVC POST 4.54 L 01/27/2024 2:35 PM CDT [facility] FEV1 POST 3.46 L 01/27/2024 2:35 PM CDT [facility] [id number] 76.07 % 01/27/2024 2:35 PM CDT [facility] KNP60-57% POST 2.99 L/s 01/27/2024 2:35 PM CDT [facility] PEF POST 5.90 L/s 01/27/2024 2:35 PM CDT [facility] DLCOc SB 24.27 ml/(min*mm Hg) 01/27/2024 2:35 PM CDT [facility] DLCO/VA PRE 5.00 ml/(min*mm Hg*L) 01/27/2024 2:35 PM CDT [facility] VA 4.85 L 01/27/2024 2:35 PM CDT [facility] TLC PRE 5.48 L 01/27/2024 2:35 PM CDT [facility] VC PRE 4.11 L 01/27/2024 2:35 PM CDT [facility] IC PRE 3.08 L 01/27/2024 2:35 PM CDT [facility] FRC PL PRE 2.39 L 01/27/2024 2:35 PM CDT [facility] ERV PRE 1.02 L 01/27/2024 2:35 PM CDT [facility] RV PRE 1.37 L 01/27/2024 2:35 PM CDT [facility] RAW PRE 7.77 cmH2O*s/L 01/27/2024 2:35 PM CDT [facility] VTG 3.24 L 01/27/2024 2:35 PM CDT [facility] FVC PRE 3.73 L 01/27/2024 2:35 PM CDT [facility] FEV1 PRE 2.58 L 01/27/2024 2:35 PM CDT [facility] [id number] 69.20 % 01/27/2024 2:35 PM CDT [facility] KMP72-60% PRE 1.86 L/s 01/27/2024 2:35 PM CDT [facility] PEF PRE 5.90 L/s 01/27/2024 2:35 PM CDT [facility] Anatomical Region Laterality Modality PFT 01/27/2024 1:30 [...] ambulation. Electronically signed by Walter Velasquez MD, FCCP Pulmonary and Critical Care Medicine [facility] Medical Group us Alexia Kong MD PFT ORDERABLES Final Result documented in this encounter Visit Diagnoses Diagnosis SOB (shortness of breath) Shortness of breath Wheezing documented in this encounter Care Teams Bow Stapler Relationship Specialty Start Date End Date Caitlyn Bolden DO [address] [place] [address] PCP - General Internal Medicine 01/04/21 documented as of this encounter
--- OUTSIDE RECORDS SUMMARY | 2024-07-18 02:29 | XMS_ITS | Encounter Summary ---
Author Organization [facility] Healthcare Address [address] [place] [address] Care Team Providers Care Dishwasher Preparer Name Role Phone Caitlyn Bolden DO Primary Care Provider [phone]- [phone] Encounter Details Date Type Department Care Team (Late st Contact Info) Description 11/13/2022 - 11/13/2022 1:09 AM CDT Emergency [facility] [address] [place] [address] Discharge Disposition: Incorrect Patient Social History Tobacco Use Types Packs/Day Years Used Date Smoking Tobacco: Never Assessed Personal Safety Answer Date Recorded Have you ever been in or are you currently in a harmful physical or emotional relationship or is someone making you feel afraid or unsafe? 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 Gender Identity Not on file Sexual Orientation Not on file documented as of this encounter Medications at Time of Discharge albuterol HFA (PROVENTIL HFA,VENTOLIN HFA,PROAIR HFA) 90 mcg/actuation inhaler Inhale 2 puffs every 4 (four) hours as needed for wheezing 1 each 11/12/2022 cetirizine (ZyrTEC) 10 mg tablet Take 1 [...] Discharge Disposition Disposition Code Departure Means Destination Incorrect Patient documented in this encounter Plan of Treatment Not on file documented as of this encounter Visit Diagnoses Not on filedocumented in this encounter Care Teams Dishwasher Preparer Relationship Specialty Start Date End Date Caitlyn Bolden DO [address] [place] [address] PCP - General Internal Medicine 01/04/21 documented as of this encounter
--- OUTSIDE RECORDS SUMMARY | 2024-07-18 02:29 | XMS_ITS | Encounter Summary ---
Author Organization [facility] Healthcare Address [address] [place] [address] Care Team Providers Care Autism Specialist Name Role Phone Caitlyn Bolden DO Primary Care Provider [phone] Reason for Visit * Reason Comments Shortness of Breath Encounter Details Date Type Department Care Team (Late st Contact Info) Description 11/11/2022 8:17 PM CDT - 11/12/2022 12:35 AM CDT Emergency [facility] Emergency Department [address] [place] [address] Shayla Carlos MD [address] [place] [address] Shortness of breath (Primary Dx); Acute cough Discharge Disposition: Discharge to home or self care Social History Tobacco Use Types Packs/Day Years Used Date Smoking Tobacco: Never Assessed Tobacco Cessation:Counseling Given: Not Answered Personal Safety Answer Date Recorded Have you ever been in or are you currently in a harmful physical or emotional relationship or is someone making you feel afraid or unsafe? 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 Gender Identity Not on file Sexual Orientation Not on file documented as of this encounter Last Filed Vital Signs Vital Sign Reading Time Taken Comments Blood Pressure 124/65 11/11/2022 11:00 PM CDT Pulse 57 11/12/2022 12:16 AM CDT Temperature 36.9 ??C (98.4 ??F) 11/11/2022 8:25 PM CD T Respiratory Rate 19 11/12/2022 12:16 AM CDT Oxygen Saturation 95% 11/12/2022 12:16 AM CDT Inhaled Oxygen Concentration - - Weight 77.1 kg (170 lb) 11/11/2022 8:19 PM CDT Height 165.1 cm (5' 5 ) 11/11/2022 8:19 PM CDT Body Mass Index 28.29 11/11/2022 8:19 PM CDT documented in this encounter Discharge Instructions * Discharge Instructions* Shayla Carlos MD - 11/12/2022 12:05 AM CDT Please return to the emergency department or call 911 if your shortness of breath returns, difficulty breathing. Return to the emergency department for chest pain, fever, coughing up blood, numbness or weakness, migratory pain or chest pain radiating to the back, leg swelling, vomiting blood, lightheadedness or any other new concerning symptoms. Please follow-up with your primary care provider in5-10 days. If you do not have a primary care provider you may make an appointment through the [facility] doctors access line at or make an appointment family physician or primary care provider @ [facility] [phone] * Attachments The following attachments cannot be sent through Care Everywhere. * Shortness of Breath (AfterCare(R) Instructions(ER/ED)) ([place]) documented in this encounter Medications at Time [...] tablet 11/12/2022 documented as of this encounter Ordered Prescriptions Prescription Sig Dispense Quantity Refills Last Filled Start Date End Date pseudoephedrine (SUDAFED) 30 mg tabletIndications: Nasal Congestion Take 1 tablet (30 mg total) by mouth every 6 (six) hours as needed for congestion (Postnasal drip) Do not take before bed. Can cause insomnia 15 tablet 11/12/2022 cetirizine (ZyrTEC) 10 mg tablet Take 1 tablet (10 mg total) by mouth daily as needed for allergies (Postnasal drip, cough) 30 tablet 11/12/2022 albuterol HFA (PROVENTIL HFA,VENTOLIN HFA,PROAIR HFA) 90 mcg/actuation inhaler Inhale 2 puffs every 4 (four) hours as needed for wheezing 1 each 11/12/2022 documented in this encounter Discharge Disposition Disposition Code Departure Means Destination Comment s Discharge to home or self care documented in this encounter ED Notes * Shayla Carlos MD - 11/11/2022 8:27 PM CDTAssociated Order(s): Critical Care Triage Chief Complaint: Chief Complaint Patient presents with Shortness of Breath Portions of the record may have been created with voice recognition software. Occasional wrong-word or '[id number]' substitutions may have occurred due to the inherent limitations of voice recognition software. Read the chart carefully and recognize, using context, where substitutions have occurred. H&P: Félix Fernandes is a 31 y.o. male with h/o smoking marijuana, but no tobacco use, no history ofasthma, presents for shortness of breath. Has had a cough for few days but today became short of breath and feels as though he can not breathe because there is mucus in the back of his throat. Cough is not productive. No sore throat. No fever. No vomiting. No chest pain. No hemoptysis. No leg pain or swelling Family history: No family history of early cardiac disease Social history: Marijuana use Additional Pertinent Past medical/past surgical/meds: Reports he is otherwise healthy Nursing Notes Reviewed. Physical Exam: ED Triage Vitals Temp Pulse Resp BP SpO2 05/03/23 2025 05/03/201811/11/22201811/11/22201811/11/222018 36.9 ??C (98.4 ??F) 61 22 128/84 91 % Temp src Heart Rate Source Patient Position BP Location FiO2 (%) 11/11/222024 -- -- -- -- Axillary Height Height Method Weight Weight Method 11/11/222018 -- 11/11/222018 -- 1.651 m (5' 5 ) 77.1 kg (170 lb) GENERAL APPEARANCE: Awake and alert. Initially tachypneic and intermittently holding his breath coughing. On re-evaluation the patient is calm and cooperative and satting well on room air. HEAD: Atraumatic. EYES: Sclera anicteric. EOMI. ENT: Tolerates saliva. Normal oropharynx. No stridor. No meningismus. Moist mucous membranes. NECK: Supple. Trachea midline. HEART: RRR. Radial pulses 2+. Occasionally noted to be bradycardic on the monitor. LUNGS: Initially tachypneic. But when patient was able to calm down and take deep breaths he had bilateral lung sounds that were CTAB. ABDOMEN: Soft. Non-tender. No guarding or rebound. EXTREMITIES: No acute deformities. No edema. Grossly symmetrical calves. SKIN: Initially the little bit diaphoretic, on re-evaluation: Warm and dry. NEUROLOGICAL: No gross facial drooping. Moves all 4 extremities spontaneously. Normal speech and mental status. No ataxia noted. Normal gait PSYCHIATRIC: Initially anxious affect, tachypneic, on re-evaluation he was much more calm. Not responding to internal stimuli. I have reviewed and interpreted all of the currently available lab results from this visit (if applicable): Labs Reviewed INFLUENZA A/B, RSV, AND COVID-19 PCR Result Value COVID-19 RNA Negative Influenza A RNA Negative Influenza B RNA Negative RSV RNA Negative Narrative: Is the Patient experiencing symptoms consistent with COVID?->Unknown Reason for testing?->Bed placement or semi-private room CBC WITH AUTO DIFFERENTIAL WBC 8.1 Hgb 14.9 Hct 44.4 Plt 237 MPV 10.5 RBC 5.06 MCV 87.7 MCH 29.4 MCHC 33.6 RDW CV 12.2 RDW SD 39.0 NRBC abs 0.00 COMPREHENSIVE METABOLIC PANEL Sodium 143 Potassium, pl 3.7 Chloride 106 CO2 26 Anion gap 12 BUN 12 Creatinine 1.22 Glucose 107 Calcium 9.7 Bilirubin, total 0.4 Protein, pl 7.5 Albumin 4.7 Alk phos 104 ALT 19 AST 36 D-DIMER, QUANTITATIVE D-Dimer <215 DIFFERENTIAL AUTO Neutrophil abs 4.3 Imm gran abs 0.0 Lymphocyte abs 2.7 Monocyte abs 0.5 Eosinophil abs 0.5 Basophil abs 0.1 Neutrophil pct 52.9 Imm gran pct 0.4 Lymphocyte pct 33.2 Monocyte pct 6.7 Eosinophil pct 5.8 Basophil pct 1.0 EGFR eGFR 82 BLOOD GAS, ARTERIAL Radiographs (if obtained): Report Reviewed: XR Chest 1 Vw Portable Final Result Six Minute Walk (Results Pending) EKG (if obtained): (All EKGs are interpreted by myself in the absence of a property supervisor) Normal sinus rhythm with a normal rate of 75 normal intervals normal axis normal ST segments and T-waves. Early report pattern. Impression: Normal EKG in this young man with his body habitus. No previous for comparison. Critical Care Performed by: Shayla Carlos MD Authorized by: Shayla Carlos MD Critical care provider statement: As reflected in the history, physical exam, orders, notes, and/or MDM, I was personally present while the patient was critically ill and provided critical care services for 31 minutes, excluding timeinvolved in separately billable procedures. Critical care was necessary to treat or prevent imminent or life- threatening deterioration of the following condition(s): severe respiratory condition Critical care was time spent by me providing the following: continuous telemetry, continuous pulse oximetry and serial bedside patient exams The patient was brought back to room 5, resuscitation room. Reportedly he was descending and placed on 2 L nasal cannula. Patient had present bilateral lung sounds and possibly end expiratory wheezing, no stridor, tolerating secretions, no meningismus, normal oropharynx. A bedside ultrasound showed bilateral lung sliding and RT was called to the bedside and a DuoNeb was started. Patient was given lorazepam and dexamethasone. But the dexamethasone he had a side effect, burning in the crotch and started screaming. However this quickly improved. I suspect the patient may be having a panic attack and they descending to the 90s maybe related to breath-holding. As I do not see physiologic reason on my exam that would explain his symptoms. Will obtain workup and continue to closely monitor. Chart/outside records review shows: History of chlamydia and gonorrhea 01/04/2021 ED course/MDM: External chart review: (details typically documented under ED workup or in chart/outside record review above in my note, if obtained) History obtained by: (Typically documented in the HPI section, sometimes in ED course when obtainedfrom additional historians but not at the initial time of patient presentation.) Discussion of management: (typically conversations time stamped and documented in ED course), Independent interpretation studies: (typically documented in ED course and please note that labs and Radiology reads obtained in the ED and listed above have been reviewed) Vitals: 11/11/22 2230 11/11/22 2300 11/11/22 2329 11/12/22 0016 BP: 108/86 124/65 Pulse: 51 59 56 57 Resp: 20 19 14 19 Temp: TempSrc: SpO2: 96% 97% 96% 95% Weight: Height: ED Course as of 11/12/22 0127 Time: 11/12 0000 Value: SpO2: 97 % Comment: Patient is now satting 98-100% on room air. He refused blood gas by RT By: Shayla Carlos MD MDM: 31-year-old male presenting to the emergency department with shortness of breath and cough, afebrile. Differential diagnosis: Bronchitis, pneumonia, pneumothorax, URI, allergies, reactive airway disease or asthma or COPD, PE, symptomatic anemia, DKA or metabolic acidosis, panic attack. Diagnostic tests and medications considered: No indication for CTA. At this time I am not convincedthe patient has pneumonia or requires antibiotics. He did respond well to treatment for reactive airway disease/asthma so he was given prescription for albuterol. Also given medications because he felt like he would like a postnasal drip that is causing this cough and make it so he could not breathe antihistamine and Sudafed. He was given dexamethasone here which may have also been 1 of the relieving factors of his symptoms. He was also given lorazepam because it seemed like there might be a anxiety component to everything that was going on. Shared decision-making: Patient felt improved and agreed with close outpatient follow-up Discharge instructions: The patient and I have discussed results, diagnosis and or diagnostic uncertainty and the need for follow-up. We have discussed follow- up instructions and return precautions, to which the patient verbalized understanding and agreement. Clinical Impression: 1. Shortness of breath 2. Acute cough Disposition: Discharge (Please note that portions of this note may have been completed with a voice recognition program. Geospatial Image Analyst errors occur. Please contact me for any clarification.) Shayla Carlos MD 11/12/22 0127 * Elayne Serrano RN - 11/11/2022 8:26 PM CDT Patient presents to ED for SOB and feeling of his throat closing up. Patient stated that hes been SOB for a couple days but now feels like its much worse and throat feels very swollen. Patient is very labored currently, trying to catch his breath, but seems like he struggling. Patient does not havea respiratory history. documented in this encounter Plan of Treatment Not on file documented as of this encounter Procedures Procedure Name Priority Date/Time Associated Diagnosis Comments XR CHEST 1 VIEW ED 11/11/2022 8:56 PM CDT ECG 12-LEAD STAT 11/11/2022 8:36 PM CDT INFLUENZA A/B, RSV, AND COVID-19 PCR Routine 11/11/2022 8:34 PM CDT EGFR STAT 11/11/2022 8:34 PM CDT DIFFERENTIAL AUTO STAT 11/11/2022 8:3 4 PM CDT CBC WITH AUTO DIFFERENTIAL STAT 11/11/2022 8:34 PM CDT D-DIMER, QUANTITATIVE STAT 11/11/2022 8:34 PM CDT COMPREHENSIVE METABOLIC PANEL STAT 11/11/2022 8:34 PM CDT NV CRITICAL CARE ILL/INJURED PATIENT INIT 30-74 MIN Routine 11/11/2022 8:27 PM CDT documented in this encounter Results * XR Chest 1 Vw Portable (11/11/2022 8:56 PM CDT) Anatomical Region Laterality Modality Body, Chest N/A Computed Radiogr aphy 11/11/2022 9:16 PM CDT Narrative 11/11/2022 9:16 PM CDT EXAM DESCRIPTION: ?? XR CHEST 1 VIEW REASON FOR STUDY: ?? Shortness of Breath. ??SOB and feeling of his throat closing up. Patient stated that hes been SOB for a couple days but now feels like its much worse and throat feels very swollen. Patient is very labored currently, trying to catch his breath, but seems like he struggling. ?? Patient does not have a respiratory history. smoker ? TECHNIQUE: ?? One ??radiographic view of the chest acquired. COMPARISON: ?? None available. FINDINGS: LUNGS/PLEURA: ?? No focal consolidation or pneumothorax. No pleural effusion. HEART/MEDIASTINUM: ?? Heart size is normal. Normal mediastinal and hilar contours. HARDWARE/LINES/TUBES: ?? None. BONES: ?? No acute findings. OTHER: ?? No other significant finding. IMPRESSION: ??No acute cardiopulmonary abnormality. THIS IS AN ELECTRONICALLY VERIFIED FINAL REPORT 11/11/2022 9:16 PM - Electronically signed by ??Adonis June M.D. MF: [email or web address] D: ??11/11/2022 9:16 PM T: ??11/11/2022 9:16 PM Report ID: [id number] Reading Location: ??[id number] Procedure Note Adonis June, DO - 11/11/2022 EXAM DESCRIPTION: XR CHEST 1 VIEW REASON FOR STUDY: Shortness of Breath. SOB and feeling of his throat closing up. Patient stated that hes been SOB for a couple days but nowfeels like its much worse and throat feels very swollen. Patient is very labored currently, trying to catch his breath, but seems like he struggling.Patient does not have a respiratory history. smoker TECHNIQUE: One radiographic view of the chest acquired. COMPARISON: None available. FINDINGS: LUNGS/PLEURA: No focal consolidation or pneumothorax. No pleuraleffusion. HEART/MEDIASTINUM: Heart size is normal. Normal mediastinal and hilar contours. HARDWARE/LINES/TUBES: None. BONES: No acute findings. OTHER: No other significant finding. IMPRESSION: No acute cardiopulmonary abnormality. THIS IS AN ELECTRONICALLY VERIFIED FINAL REPORT 11/11/2022 9:16 PM - Electronically signed by Adonis June M.D. MF: [email or web address] Report ID: [id number] Reading Location: [place] [address] [place] Shayla Carlos MD IMG XR PROCEDURES Final Result * ECG 12 lead (11/11/2022 8:36 PM CDT) 11/11/2022 8:36 PM CDT Narrative [facility] - 11/12/2022 7:29 AM CDT Vent Rate: 75 bpm RR Interval: 797 msec NV Interval: 144 msec QRS Duration: 90 msec QT Interval: 365 msec QTC Interval: 394 msec P-R-T [place]: 72 - 91 - 46 degrees SINUS RHYTHM WITH MARKED SINUS ARRHYTHMIA BORDERLINE RIGHT AXIS DEVIATION ??[QRS AXIS > 90] EARLY REPOLARIZATION ??[ST ELEVATION WITH NORMALLY INFLECTED T-WAVE] Baseline artifact No previous EKG for comparison Electronically Signed By: Dr Mehdi Viera us Shayla Carlos MD ECG ORDERABLES Final Re sult [facility] * eGFR (11/11/2022 8:34 PM CDT) eGFR 82 mL/min/1. 73 m2 [facility] ([place]) Comment: Interpretive Data Reference Interval Normal ?>/= 90 mL/min/1.73m2 Mildly decreased* ? 60 - 89 mL/min/1.73m2 Mildly to moderately decreased ?45 - 59 mL/min/1.73m2 Moderately to severely decreased ??30 - 44 mL/min/1.73m2 Severely decreased ?15 - 29 mL/min/1.73m2 Kidney Failure ?< 15 ??mL/min/1.73m2 *Relative to young adult level Estimated glomerular filtration rate is determined by the 2020 CKD-EPI equation recommended by the National Kidney Foundation (A Unifying Approach to GFR Estimation: Recommendations of the NKF-ASK Task Force on Reassessing the Inclusion of Race in Diagnosing Kidney Disease, JASN 2020). The CKD-EPI equation should not be used for patients with unstable renal function and has not been validated in children and those over 70. Current interpretive data was last reviewed 2021. Blood 11/11/2022 8:34 PM CDT 11/11/2022 8:39 PM CDT us Shayla Carlos MD LAB BLOOD ORDERABLES Fin al Result [facility] ([place] 1 [facility] Department [place] [address] * Differential, auto (11/11/2022 8:34 PM CDT) Neutrophil abs 4.3 1.7 - 6.5 K/cumm [facility] ([place]) Imm gran abs 0.0 0.0 - 0.1 K/cumm [facility] ([place]) Lymphocyte abs 2.7 0.8 - 3.3 K/cumm [facility] ([place]) Monocyte abs 0.5 0.2 - 0.8 K/cumm [facility] ([place]) Eosinophil abs 0.5 0.0 - 0.5 K/cumm [facility] ([place]) Basophil abs 0.1 0.0 - 0.1 K/cumm [facility] ([place]) Neutrophil pct 52.9 % [facility] ([place]) Comment: Interpretive Data Percent cell count reference ranges are not reported, since discordance with absolute values may lead to misinterpretation of CBC data. Current Interpretive Data was last revised on 2017. Imm gran pct 0.4 % [facility] ([place]) Comment: Interpretive Data Percent cell count reference ranges are not reported, since discordance with absolute values may lead to misinterpretation of CBC data. Current Interpretive Data was last revised on 2017. Lymphocyte pct 33.2 % [facility] ([place]) Comment: Interpretive Data Percent cell count reference ranges are not reported, since discordance with absolute values may lead to misinterpretation of CBC data. Current Interpretive Data was last revised on 2017. Monocyte pct 6.7 % [facility] ([place]) Comment: Interpretive Data Percent cell count reference ranges are not reported, since discordance with absolute values may lead to misinterpretation of CBC data. Current Interpretive Data was last revised on 2017. Eosinophil pct 5.8 % [facility] ([place]) Comment: Interpretive Data Percent cell count reference ranges are not reported, since discordance with absolute values may lead to misinterpretation of CBC data. Current Interpretive Data was last revised on 2017. Basophil pct 1.0 % [facility] ([place]) Comment: Interpretive Data Percent cell count reference ranges are not reported, since discordance with absolute values may lead to misinterpretation of CBC data. Current Interpretive Data was last revised on 2017. Blood 11/11/2022 8:34 PM CDT 11/11/2022 8:39 PM CDT us Shayla Carlos MD LAB BLOOD ORDERABLES Fin al Result [facility] ([place]) 1 [facility] Department [place] [address] * D-dimer, quantitative (11/11/2022 8:34 PM CDT) D-Dimer <215 <=499 ng/mL [facility] ([place]) Comment: Interpretive data FDA approved the D-dimer, in conjunction with a low or moderate pretest probability score, to exclude venous thromboembolic events (VTE) (PE and DVT) in outpatients when the D-dimer result is < 500 ng/ml FEU. ?? Evidence supports using an age-adjusted D-dimer cut-off for outpatients older than 50 (age x 10) to improve specificity without sacrificing sensitivity. Example: age 68, VTE cut-off 680 ng/ml FEU. References; Schouten HT et al. Brit Med J. 2013;346:f2492. Debbie et al. Annals Int Med. 2015;163:701-11. Current interpretive data was last revised on 2019. Blood 11/11/2022 8:34 PM CDT 11/11/2022 8:39 PM CDT Shayla Carlos MD LAB BLOOD ORDERABLES Fin al Result [facility] ([place]) 1 [facility] Department [place] [address] * Comprehensive metabolic panel (11/11/2022 8:34 PM CDT) Sodium 143 135 - 145 mmol/L [facility] ([place]) Potassium, pl 3.7 3.3 - 4.9 mmol/L [facility] ([place]) Chloride 106 97 - 110 mmol/L [facility] ([place]) CO2 26 22 - 32 mmol/L [facility] ([place]) Anion gap 12 2 - 15 mmol/L [facility] ([place]) BUN 12 8 - 25 mg/dL [facility] ([place]) Creatinine 1.22 0.80 - 1.30 mg/dL [facility] ([place]) Glucose 107 70 - 199 mg/dL [facility] ([place]) Comment: Interpretive Data Fasting glucose >/= 126 mg/dl is diagnostic for diabetes. ?? Fasting is defined as no caloric intake for at least 8 hours. Fasting glucose between 100 mg/dl to 125 mg/dl is diagnostic of prediabetes. In a patient with classic symptoms of hyperglycemia or hyperglycemic crisis, a random glucose >/= 200 mg/dl is diagnostic for diabetes. In the absence of unequivocal hyperglycemia, results should be confirmed by repeat testing. The classification and Diagnosis of Diabetes Diabetes Care 2021; 46: S19-S40. Current interpretive data was last revised 2022. Calcium 9.7 8.5 - 10.3 mg/dL [facility]) Bilirubin, total 0.4 0.1 - 1.2 mg/dL [facility] ([place]) Protein, pl 7.5 6.5 - 8.5 g/dL [facility]) Albumin 4.7 3.5 - 5.0 g/dL [facility] ([place]) Alk phos 104 40 - 130 Units/L [facility] ([place]) ALT 19 7 - 55 Units/L [facility] ([place]) AST 36 10 - 50 Units/L [facility] ([place]) Comment:Slightly Hemolyzed S pecimen Blood 11/11/2022 8:34 PM CDT 11/11/2022 8:39 PM CDT us Shayla Carlos MD LAB BLOOD ORDERABLES Fin al Result [facility] ([place]) 1 [facility] Department [place] [address] * CBC with auto differential (11/11/2022 8:34 PM CDT) WBC 8.1 3.8 - 9.9 K/cumm [facility] ([place]) Hgb 14.9 13.0 - 17.5 g/dL [facility] ([place]) Hct 44.4 38.9 - 50.3 % [facility] ([place]) Plt 237 150 - 400 K/cumm [facility] ([place]) MPV 10.5 9.1 - 12.3 fL [facility] ([place]) RBC 5.06 4.30 - 5.80 M/cumm [facility] ([place]) MCV 87.7 81.3 - 96.4 fL [facility] ([place]) MCH 29.4 27.1 - 33.3 pg [facility] ([place]) MCHC 33.6 32.3 - 35.7 g/dL [facility] ([place]) RDW CV 12.2 11.1 - 14.9 % [facility] ([place]) RDW SD 39.0 35.7 - 48.1 fL [facility] ([place]) NRBC abs 0.00 0.00 - 0.01 K/cumm [facility] ([place]) Blood 11/11/2022 8:34 PM CDT 11/11/2022 8:39 PM CDT us Shayla Carlos MD LAB BLOOD ORDERABLES Fin al Result [facility] ([place] 1 [facility] Department [place] [address] * Influenza A/B, RSV, and COVID-19 PCR Nasopharyngeal (11/11/2022 8:34 PM CDT) COVID-19 RNA Negative Negative [facility] ([place]) Influenza A RNA Negative Negative [facility] [place]) Influenza B RNA Negative [facility] ([place]) RSV RNA Negative Negative [facility] ([place]) Comment: Interpretive data: This test is performed using the [employer] Xpert Xpress CoV-2/Flu/RSV plus assay. This is a multiplex, real-time reverse transcriptase PCR assay intended for the qualitative detection of nucleic acid from SARS-CoV-2, influenza A, influenza B, and respiratory syncytial virus. This assay has been reviewed by the FDA for Emergency Use Authorization (EUA). The performance characteristics have been verified by the performing laboratory. Results must be considered in the clinical context, and a negative result does not rule out infection. Interpretive Data last revised 2021. Nasopharyngeal 11/11/2022 8: 34 PM CDT 11/11/2022 8:39 PM CDT Narrative [facility] ([place] - 11/11/2022 9:23 PM CDT Is the Patient experiencing symptoms consistent with COVID?->Unknown Reason for testing?->Bed placement or semi-private room us Shayla Carlos MD LAB MICROBIOLOGY - GENER AL ORDERABLES Final Result [facility] [place] [facility] Department [place] [address] * [place] CRITICAL CARE ILL/INJURED PATIENT INIT 30-74 MIN (11/11/2022 8:27 PM CDT) Narrative Shayla Carlos MD - 11/11/2022 8:27 PM CDT Shayla Carlos MD ? 11/12/2022 ??1:27 AM Critical Care Performed by: Shayla Carlso MD Authorized by: Shayla Carlos MD ?? Critical care provider statement: As reflected in the history, physical exam, orders, notes, and/or MDM, I was personally present while the patient was critically ill and provided critical care services for 31 minutes, excluding time involved in separately billable procedures. ??Critical care was necessary to treat or prevent imminent or life-threatening deterioration of the following condition(s): ?? severe respiratory condition ??Critical care was time spent by me providing the following: ? continuous telemetry, continuous pulse oximetry and serial bedside patient exams ?? The patient was brought back to room 5, resuscitation room. ??Reportedly he was descending and placed on 2 L nasal cannula. ??Patient had present bilateral lung sounds and possibly end expiratory wheezing, no stridor, tolerating secretions, no meningismus, normal oropharynx. ??A bedside ultrasound showed bilateral lung sliding and RT was called to the bedside and a DuoNeb was started. ??Patient was given lorazepam and dexamethasone. ?? But the dexamethasone he had a side effect, burning in the crotch and started screaming. ??However this quickly improved. ??I suspect the patient may be having a panic attack and they descending to the 90s maybe related to breath-holding. ??As I do not see physiologic reason on my exam that would explain his symptoms. ??Will obtain workup and continue to closely monitor. us Shayla Carlos MD IN CLINIC/BEDSIDE ORDERA BLES Final Result documented in this encounter Visit Diagnoses Diagnosis Shortness of breath- Primary Acute cough documented in this encounter Administered Medications Inactive Administered Medications - up to 3 most recent administrations Medication Order MAR Action Action Date Dose Rate Site albuterol 2.5 mg/0.5 mL nebulizer solution 5 mg 5 mg, nebulization, Once (respiratory therapist), On Wed11/11/22 at 221, For 1 dose Given 11/11/2022 10:22 PM CDT 5 mg cetirizine (ZyrTEC) tablet 10 mg 10 mg, oral, Once, On Wed11/11/22 at 2222, For 1 dose Given 11/11/2022 10:51 PM CDT 10 mg dexAMETHasone (DECADRON) injection solution 10 mg 10 mg, intravenous, Administer over 2 Minutes, Once, On Wed11/11/22 at 2025, For 1 dose Given 11/11/2022 8:32 PM CDT 10 mg ipratropium (ATROVENT) 0.02 % nebulizer solution 0.5 mg 0.5 mg, nebulization, Once (respiratory therapist), On Wed11/11/22 at 2215, For 1 dose Given 11/11/2022 10:22 PM CDT 0.5 mg ipratropium-albuteroL (DUO-NEB) 0.5-2.5 mg/3 mL nebulizer solution 3 mL 3 mL, nebulization, Once (respiratory therapist), On Wed11/11/22 at 2024, For 1 dose, Indications: Chronic Obstructive Pulmonary Disease with BronchospasmsIndications:Chronic Obstructive Pulmonary Disease with Bronchospasms Given 11/11/2022 8:28 PM CDT 3 mL LORazepam (ATIVAN) injection 0.5 mg 0.5 mg, intravenous, Once, On Wed11/11/22 at 2025, For 1 dose, For IV administration, dilute with equal volume of 0.9% sodium chloride to a final concentration of 1 mg/mL. Do not exceed a rate of 2 mg/minute Given 11/11/2022 8:31 PM CDT 0.5 mg documented in this encounter Active and Recently Administered Medications Times are shown in CDT. Scheduled Medication Order 11/10/2022 11/11/2022 11/12/2022 albuterol 2.5 mg /3 mL (0.083 %) nebulizer solution 2.5 mg 2.5 mg, nebulization, Once (respiratory therapist), On Wed11/11/22 at 2215, For 1 dose, This therapy was substituted for albuterol MDI 2 puffs per protocol. 2215 (Due) albuterol 2.5 mg/0.5 mL nebulizer solution 5 mg (COMPLETED) 5 mg, nebulization, Once (respiratory therapist), On Wed11/11/22 at 2215, For 1 dose 2221 (Given - Provider: Maximiliano Chang, JESSICA) cetirizine (ZyrTEC) tablet 10 mg (COMPLETED) 10 mg, oral, Once, On Wed11/11/22 at 2222, For 1 dose 2250 (Given - Provider: Joanna Silva, DAVE) dexAMETHasone (DECADRON) injection solution 10 mg (COMPLETED) 10 mg, intravenous, Administer over 2 Minutes, Once, On Wed11/11/22 at 2025, For 1 dose 2031 (Given - Provider: Joanna Silva RN) ipratropium (ATROVENT) 0.02 % nebulizer solution 0.5 mg (COMPLETED) 0.5 mg, nebulization, Once (respiratory therapist), On Wed11/11/22 at 2215, For 1 dose 2221 (Given - Provider: Maximiliano Chang RRT) ipratropium-albuteroL (DUO-NEB) 0.5-2.5 mg/3 mL nebulizer solution 3 mL (COMPLETED) 3 mL, nebulization, Once (respiratory therapist), On Wed11/11/22 at 2024, For 1 dose, Indications: Chronic Obstructive Pulmonary Disease with Bronchospasms 2027 (Given - Provider: Maximiliano Chang, JESSICA) LORazepam (ATIVAN) injection 0.5 mg (COMPLETED) 0.5 mg, intravenous, Once, On Wed11/11/22 at 2025, For 1 dose, For IV administration, dilute with equal volume of 0.9% sodium chloride to a final concentration of 1 mg/mL. Do not exceed a rate of 2 mg/minute 2030 (Given - Provider: Joanna Silva RN) documented in this encounter Orders Medications Ordered That Vitaliy ht Not Have Been Administered Count Last Ordered Date First Ordered Date albuterol 2.5 mg /3 mL (0.08 3 %) nebulizer solution 2.5 mg 1 11/11/2022 albuterol HFA (PROVENTIL HFA ,VENTOLIN HFA,PROAIR HFA) 90 mcg/actuation inhaler 2 puff 1 11/11/2022 Nursing Count Last Ordered Date First Orde red Date PULSE OXIMETRY - RN 1 11/11/2022 documented in this encounter Additional Health Concerns Infection Onset Date Last Indicated Resolved Time COVID: Suspected 11/11/2022 11/11/2022 11/11/2022 9:24 PM CDT documented as of this encounter Care Teams Autism Specialist Relationship Specialty Start Date End Date Caitlyn Bolden DO [facility] [place] [address] PCP - General Internal Medicine 01/04/21 documented as of this encounter
--- OUTSIDE RECORDS SUMMARY | 2024-07-18 02:29 | XMS_ITS | Encounter Summary ---
Author Organization [facility] Address [address] [place] [address] Care Team Providers Care Public Opinion Survey Taker Name Role Phone Unavailable Primary Care Provider Unavailabl e Encounter Details Date Type Department Care Team (Late st Contact Info) Description 08/07/2023 External Device Data STL ABSTRACTION Provider, Abstract [...]
--- OUTSIDE RECORDS SUMMARY | 2024-07-18 02:29 | XMS_ITS | Encounter Summary ---
Author Organization [facility] Address [address] [place] [address] Care Team Providers Care Cna Hospice Name Role Phone Unavailable Primary Care Provider Unavailabl e Encounter Details Date Type Department Care Team (Late st Contact Info) Description 09/24/2023 External Device Data STL ABSTRACTION Provider, Abstract [...]
--- OUTSIDE RECORDS SUMMARY | 2024-07-18 02:29 | XMS_ITS | Encounter Summary ---
Author Organization [facility] Address [address] [place] [address] Care Team Providers Care Medical Billing Clerk Name Role Phone Unavailable Primary Care Provider Unavailabl e Encounter Details Date Type Department Care Team (Late st Contact Info) Description 06/23/2023 External Device Data STL ABSTRACTION Provider, Abstract [...]
--- OUTSIDE RECORDS SUMMARY | 2024-07-18 02:29 | XMS_ITS | Encounter Summary ---
Author Organization [facility] Address [address] [place] [address] Care Team Providers Care Printed Circuit Board Panels Trimmer Name Role Phone Unavailable Primary Care Provider Unavailabl e Encounter Details Date Type Department Care Team (Late st Contact Info) Description 09/14/2023 External Device Data STL ABSTRACTION Provider, Abstract [...]
--- OUTSIDE RECORDS SUMMARY | 2024-07-18 02:29 | XMS_ITS | Clinical Summary ---
Author Organization [facility] [employer] [place] Address [address] [place] [address] Care Team Providers Care Metal Cnc Operator Name Role Phone Unavailable Primary Care Provider Unavailabl e Active Problems No known active problems Social History Tobacco Use Types Packs/Day Years Used Date Smoking Tobacco: Never Assessed Sex and Gender Information Value Date Recorded Sex Assigned at Not on file Gender Identity Not on file Sexual Orientation Not on file Last Filed Vital Signs Vital Sign Reading Time Taken Comments Blood Pressure 112/68 12/16/2022 8:05 AM CDT Pulse - - Temperature - - Respiratory Rate - - Oxygen Saturation - - Inhaled Oxygen Concentration - - Weight 76.2 kg (168 lb) 12/16/2022 8:05 AM CDT Height 167.6 cm (5' 6 ) 12/16/2022 8:05 AM CDT Body Mass Index 27.12 12/16/2022 8:05 AM CDT Plan of Treatment Health Maintenance Due Date Last Done Comments HEPATITIS B VACCINES (1 of 3 - 19+ 3-dose series) 12/13/2011 10/12/2015, 09/10/2014, 08/09/2014 INFLUENZA VACCINE (#1) 2024 9, 10/12/2015, 05/13/2014 DTAP/TDAP/TD VACCINES (2 - T d or Tdap) 08/09/2024 08/09/2014 HPV VACCINES Aged Out No longer eligi ble based on patient's age to complete this topic PNEUMOCOCCAL VACCINE 0-64 YEARS Aged Out No longer eligible b ased on patient's age to complete this topic Guarantor Name Account Type Relation to Patient Date of Phone Billing Address [employer] Corporate Employer ATTN: VELMA GIVENS [address] [address]
--- OUTSIDE RECORDS SUMMARY | 2024-07-18 02:29 | XMS_ITS | Encounter Summary ---
Author Organization [facility] Address [address] [place] [address] Care Team Providers Care Biological Sciences Instructor Name Role Phone Unavailable Primary Care Provider Unavailabl e Encounter Details Date Type Department Care Team (Late st Contact Info) Description 08/11/2023 External Device Data STL ABSTRACTION Provider, Abstract [...]
--- OUTSIDE RECORDS SUMMARY | 2024-07-18 02:29 | XMS_ITS | Encounter Summary ---
Author Organization [facility] Address [address] [place] [address] Care Team Providers Care Dishwasher Preparer Name Role Phone Unavailable Primary Care Provider Unavailabl e Encounter Details Date Type Department Care Team (Late st Contact Info) Description 08/06/2023 External Device Data STL ABSTRACTION Provider, Abstract [...]
--- OUTSIDE RECORDS SUMMARY | 2024-07-18 02:29 | XMS_ITS | Encounter Summary ---
Author Organization [facility] Address [address] [place] [address] Care Team Providers Care Early Childhood Lead Teacher Name Role Phone Unavailable Primary Care Provider Unavailabl e Encounter Details Date Type Department Care Team (Late st Contact Info) Description 08/08/2023 External Device Data STL ABSTRACTION Provider, Abstract [...]
--- OUTSIDE RECORDS SUMMARY | 2024-07-18 02:29 | XMS_ITS | Encounter Summary ---
Author Organization [facility] Address [address] [place] [address] Care Team Providers Care Geriatric Assistant Name Role Phone Unavailable Primary Care Provider Unavailabl e Reason for Visit * Reason Comments Labs Only Encounter Details Date Type Department Care Team (Late st Contact Info) Description 12/16/2022 8:20 AM CDT Office Visit [facility] [address] [place] [address] Screening for condition (Primary Dx) Social History Tobacco Use Types Packs/Day Years [...] Mass Index 27.12 12/16/2022 8:05 AM CDT documented in this encounter Progress Notes * Negar Hendrickson - 12/16/2022 8:09 AM CDT Pt came in for blood draw, right AC successful, 1 stick, pt tolerated well. Drawn by Bora CASTRO documented in this encounter Miscellaneous Notes * Result Encounter Note - Little Montaño MD - 12/17/2022 2:50 PM CDT Result received in InBasket documented in this encounter Plan of Treatment Not on file documented as of this encounter Procedures Procedure Name Priority Date/Time Associated Diagnosis Comments CBC WITH DIFFERENTIAL Routine 12/16/2022 8:02 AM CDT Screening for condition TSH Routine 12/16/2022 8:02 AM CDT Screening for condition LIPID PANEL Routine 12/16/2022 8:02 AM CDT Screening for condition COMPREHENSIVE METABOLIC PANEL Routine 12/16/2022 8:02 AM CDT Screening for condition documented in this encounter Results * TSH (12/16/2022 8:02 AM CDT) TSH 0.71 0.40 - 4.50 mIU/L [facility] Comment: Test Performed at: [facility] [address] [place], [place] ??[id number] Skye Sierra MD Blood 12/16/2022 8:02 AM CDT 12/17/2022 4:10 AM CDT Little Montaño MD CHEMISTRY ORDERABLES [facility] [phone] [facility] [address] [place] [address] * LIPID PANEL (12/16/2022 8:02 AM CDT) CHOLESTEROL 146 <200 mg/dL [facility] HDL 55 > OR = 40 mg/dL [facility] TRIGLYCERIDE 47 <150 mg/dL [facility] LDL CALCULATED 78 mg/dL (calc) [facility] Comment: Reference range: <100 Desirable range <100 mg/dL for primary prevention; ?? <70 mg/dL for patients with CHD or diabetic patients with > or = 2 CHD risk factors. LDL-C is now calculated using the Adriana calculation, which is a validated novel method providing better accuracy than the Friedewald equation in the estimation of LDL-C. Pablo SS et al. VICENTA. 2013;310(19): 3027-5910 (http://education.Spinzo/faq/TTE976) CHOL/HDL RATIO 2.7 <5.0 (calc) [facility] TOTAL NON-HDL CHOL(LDL+VLDL) 91 <130 mg/dL (calc) [facility] Comment: For patients with diabetes plus 1 major ASCVD risk factor, treating to a non-HDL-C goal of <100 mg/dL (LDL-C of <70 mg/dL) is considered a therapeutic option. Test Performed at: [facility] [address] [place] [address] ??[id number] Skye Sierra MD Blood 12/16/2022 8:02 AM CDT 12/17/2022 4:10 AM CDT Little Montaño MD CHEMISTRY ORDERABLES [facility] [phone] [facility] [address] * COMPREHENSIVE METABOLIC PANEL (12/16/2022 8:02 AM CDT) GLUCOSE 88 65 - 99 mg/dL [facility] Comment: ? Fasting reference interval BUN 13 7 - 25 mg/dL [facility] CREATININE 1.24 0.60 - 1.26 mg/dL [facility] GFR 80 > OR = 60 mL/min/1. 73m2 [facility] Comment: The eGFR is based on the CKD-EPI 2020 equation. To calculate the new eGFR from a previous Creatinine or Cystatin C result, go to https://www.kidney.org/professionals/ kdoqi/gfr%5Fcalculator BUN/CREAT RATIO NOT APPLICABLE 6 - 22 (calc) [facility] SODIUM 142 135 - 146 mmol/L [facility] POTASSIUM 4.2 3.5 - 5.3 mmol/L [facility] CHLORIDE 108 98 - 110 mmol/L [facility] CO2 27 20 - 32 mmol/L [facility] CALCIUM 9.3 8.6 - 10.3 mg/dL [facility] TOTAL PROTEIN 6.8 6.1 - 8.1 g/dL [facility] ALBUMIN 4.4 3.6 - 5.1 g/dL [facility] GLOBULIN 2.4 1.9 - 3.7 g/dL (calc) [facility] ALBUMIN/GLOBULI N RATIO 1.8 1.0 - 2.5 (calc) [facility] BILIRUBIN TOTAL 0.4 0.2 - 1.2 mg/dL [facility] ALKALINE PHOSPHATASE 69 36 - 130 U/L [facility] AST 21 10 - 40 U/L [facility] ALT 12 9 - 46 U/L [facility] Comment: Test Performed at: [facility] ??[id number] Skye Sierra MD Blood 12/16/2022 8:02 AM CDT 12/17/2022 4:10 AM CDT Little Montaño MD CHEMISTRY ORDERABLES [facility] [phone] [facility] [address] * CBC WITH DIFFERENTIAL (12/16/2022 8:02 AM CDT) WBC 5.2 3.8 - 10.8 Thousand/u L [facility] RBC 4.92 4.20 - 5.80 Million/uL [facility] HEMOGLOBIN 14.6 13.2 - 17.1 g/dL [facility] HEMATOCRIT 44.7 38.5 - 50.0 % [facility] MCV 90.9 80.0 - 100.0 fL [facility] MCH 29.7 27.0 - 33.0 pg [facility] MCHC 32.7 32.0 - 36.0 g/dL [facility] RDW 12.1 11.0 - 15.0 % [facility] PLATELETS 213 140 - 400 Thousand/u L [facility] MPV 10.9 7.5 - 12.5 fL [facility] NEUTROPHIL ABSOLUTE 3,110 1,500 - 7,800 cells/uL [facility] LYMPHOCYTE ABSOLUTE 1,269 850 - 3,900 cells/uL [facility] MONOCYTE ABSOLUTE 390 200 - 950 cells/uL [facility] EOSINOPHIL ABSOLUTE 380 15 - 500 cells/uL [facility] BASOPHILS ABSOLUTE 52 0 - 200 cells/uL [facility] NEUTROPHIL 59.8 % [facility] LYMPHOCYTES 24.4 % [facility] MONOCYTE 7.5 % [facility] EOSINOPHILS 7.3 % [facility] BASOPHILS 1.0 % [facility] Comment: Test Performed at: [facility] ??[id number] Skye Sierra MD Blood 12/16/2022 8:02 AM CDT 12/17/2022 4:10 AM CDT Little Montaño MD HEMATOLOGY ORDERABLE S [facility] [phone] [facility] [address] [place] [address] documented in this encounter Visit Diagnoses Diagnosis Screening for condition- Primary Screening for unspecified condition documented in this encounter
--- OUTSIDE RECORDS SUMMARY | 2024-07-18 02:29 | XMS_ITS | Referral Summary ---
Author Organization [facility] Address [address] [place] [address] Care Team Providers Care Photo Lab Technician Name Role Phone Caitlyn Bolden DO Primary Care Provider +1- [phone] Allergies Active Allergy Reactions Criticality Noted Date [...] Active Active Problems No known active problems Social History Tobacco Use Types Packs/Day Years Used Date Smoking Tobacco: Never Smokeless Tobacco: Never Comments:Pt stated he smokes Marijuana Personal Safety Answer Date Recorded Getting School Help Needed Not on file 11/22 Sex and Gender Information Value Date Recorded Sex Assigned at Not on file 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
--- OUTSIDE RECORDS SUMMARY | 2024-07-18 02:29 | XMS_ITS | Encounter Summary ---
Author Organization [facility] Address [address] [place] [address] Care Team Providers Care Manager Of Merchandising Name Role Phone Unavailable Primary Care Provider Unavailabl e Encounter Details Date Type Department Care Team (Late st Contact Info) Description 09/10/2023 External Device Data ST[facility] ABSTRACTION Provider, Abstract [...]
--- OUTSIDE RECORDS SUMMARY | 2024-07-18 06:38 | XMS_ITS | Encounter Summary ---
Author Organization [facility] Address [address] [place] [address] Care Team Providers Care Microsoft Dynamics Consultant Name Role Phone Unavailable Primary Care Provider [...]
--- OUTSIDE RECORDS SUMMARY | 2024-07-18 06:38 | XMS_ITS | Clinical Summary ---
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
--- OUTSIDE RECORDS SUMMARY | 2024-07-18 06:38 | XMS_ITS | Encounter Summary ---
Author Organization [facility] Address [address] [place] [address] Care Team Providers Care Industrial Hygiene Technician Name Role Phone Unavailable Primary Care Provider [...]
--- OUTSIDE RECORDS SUMMARY | 2024-07-18 06:38 | XMS_ITS | Encounter Summary ---
Author Organization [facility] Address [address] [place] [address] Care Team Providers Care Contracting Specialist Name Role Phone Unavailable Primary Care Provider [...]
--- OUTSIDE RECORDS SUMMARY | 2024-07-18 06:38 | XMS_ITS | Encounter Summary ---
Author Organization [facility] Address [address] [place] [address] Care Team Providers Care Multiple Resaw Operator Name Role Phone Unavailable Primary Care [...]
--- OUTSIDE RECORDS SUMMARY | 2024-07-18 06:38 | XMS_ITS | Encounter Summary ---
Author Organization [facility] Address [address] [place] [address] Care Team Providers Care Sales Team Manager Name Role Phone Unavailable Primary Care Provider [...]
--- OUTSIDE RECORDS SUMMARY | 2024-07-18 06:38 | XMS_ITS | Encounter Summary ---
Author Organization [facility] Healthcare Address [address] [place] [address] Care Team Providers Care Instructional Assistant Name Role Phone Caitlyn Bolden DO Primary Care Provider +1- [phone] Reason for Referral * Procedure (Routine) - Closed Specialty Diagnoses / Procedures Referred By Andres perales Referred To Contact Diagnoses SOB (shortness of breath) Wheezing Procedures Pulmonary Function Test -[facility]; Full PFT in PFT Lab w/Stress Ox/6 Min Walk Test Alexia Kong MD [address] [place] [address] [place] [address] Phone: tel: fax: Referral ID Status Reason Start Date Expiration Date Visits Re quested Visits Authorized [id number] Closed 11/25/2023 12/24/2024 1 1 Reason for Visit * Procedure (Routine) - Closed Specialty Diagnoses / Procedures Referred By Andres perales Referred To Contact Diagnoses SOB (shortness of breath) Wheezing Procedures Pulmonary Function Test -[facility]; Full PFT in PFT Lab w/Stress Ox/6 Min Walk Test Alexia Kong MD [address] [place] [address] [place] [address] Phone: tel: fax: Referral ID Status Reason Start Date Expiration Date Visits Re quested Visits Authorized [id number] Closed 11/25/2023 12/24/2024 1 1 Encounter Details Date Type Department Care Team (Latest Contact Info) Description 01/27/2024 1:20 PM CDT - 01/27/2024 11:59 PM CDT Hospital Encounter [facility] Respiratory [facility] [place] [address] SOB (shortness of breath); Wheezing [...] on file 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 Gender Identity Not on file Sexual Orientation [...] this encounter Progress Notes * Magui [place], MANAGER [employer] - 01/27/2024 2:40 PM CDT Six minute [...] POST 4.54 L 01/27/2024 2:35 PM CDT [facility] FEV1 POST 3.46 L 01/27/2024 2:35 PM CDT [facility] [id number] 76.07 % 01/27/2024 2:35 PM CDT [facility] MTL29-50% POST 2.99 L/s 01/27/2024 2:35 PM CDT [facility] PEF POST 5.90 L/s 01/27/2024 2:35 PM CDT [facility] DLCOc SB 24.27 ml/(min*mm Hg) 01/27/2024 2:35 PM CDT [facility] DLCO/VA PRE 5.00 ml/(min*mm Hg*L) 01/27/2024 2:35 PM CDT [facility] VA 4.85 L 01/27/2024 2:35 PM CDT [facility] TLC PRE 5.48 L 01/27/2024 2:35 PM CDT [facility] VC PRE 4.11 L 01/27/2024 2:35 PM CDT [facility] IC PRE 3.08 L 01/27/2024 2:35 PM CDT [facility] FRC PL PRE 2.39 L 01/27/2024 2:35 PM CDT [facility] ERV PRE 1.02 L 01/27/2024 2:35 PM CDT [facility] RV PRE 1.37 L 01/27/2024 2:35 PM CDT [facility] RAW PRE 7.77 cmH2O*s/L 01/27/2024 2:35 PM CDT [facility] VTG 3.24 L 01/27/2024 2:35 PM CDT [facility] FVC PRE 3.73 L 01/27/2024 2:35 PM CDT [facility] FEV1 PRE 2.58 L 01/27/2024 2:35 PM CDT [facility] [id number] 69.20 % 01/27/2024 2:35 PM CDT [facility] CCS04-96% PRE 1.86 L/s 01/27/2024 2:35 PM CDT [facility] PEF PRE 5.90 L/s 01/27/2024 2:35 PM CDT [facility] Anatomical Region Laterality Modality PFT 01/27/2024 1:30 [...] MD, FCCP Pulmonary and Critical Care Medicine [facility] Medical Group us Alexia Kong MD PFT ORDERABLES Final Result documented in this encounter Visit Diagnoses Diagnosis SOB (shortness of breath) Shortness of breath Wheezing documented in this encounter Care Teams Instructional Assistant Relationship Specialty Start Date End Date Caitlyn Bolden DO [address] [place] [address] PCP - General Internal Medicine 01/04/21 documented as of this encounter
--- OUTSIDE RECORDS SUMMARY | 2024-07-18 06:38 | XMS_ITS | Encounter Summary ---
Author Organization [facility] Address [address] [place] [address] Care Team Providers Care Avionics Engineer Name Role Phone Unavailable Primary Care Provider [...]
--- OUTSIDE RECORDS SUMMARY | 2024-07-18 06:38 | XMS_ITS | Referral Summary ---
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
--- OUTSIDE RECORDS SUMMARY | 2024-07-18 06:38 | XMS_ITS | Encounter Summary ---
Author Organization [facility] Address [address] [place] [address] Care Team Providers Care Field Inspector Name Role Phone Unavailable Primary Care Provider [...]
--- OUTSIDE RECORDS SUMMARY | 2024-07-18 06:38 | XMS_ITS | Encounter Summary ---
Author Organization [facility] Address [address] [place] [address] Care Team Providers Care Missing Persons Investigator Name Role Phone Unavailable Primary Care Provider [...]
--- OUTSIDE RECORDS SUMMARY | 2024-07-18 06:38 | XMS_ITS | Encounter Summary ---
Author Organization [facility] Address [address] [place] [address] Care Team Providers Care Carpentry Teacher Name Role Phone Unavailable Primary Care Provider Unavailabl e Reason for Visit * Reason Comments Labs Only Encounter Details Date Type Department Care Team (Late st Contact Info) Description 12/16/2022 8:20 AM CDT Office Visit [facility] [address] [place] [address] Screening for condition (Primary Dx) [...] [facility]ostics[facility] Comment: Test Performed at: [facility] [address] [place], [place] ??[phone] Skye Sierra MD Blood 12/16/2022 8:02 AM CDT 12/17/2022 4:10 AM CDT Little Montaño MD CHEMISTRY ORDERABLES [facility] [phone] [facility] [address] [place] [address] * LIPID PANEL (12/16/2022 8:02 AM CDT) [...] LDL-C. Pablo SS et al. VICENTA. 2013;310(19): 9316-0681 (http://education.basno/faq/DLI475) CHOL/HDL RATIO 2.7 <5.0 (calc) [facility] TOTAL NON-HDL CHOL(LDL+VLDL) 91 <130 mg/dL (calc) [facility] Comment: For patients with diabetes plus 1 major ASCVD risk factor, treating to a non-HDL-C goal of <100 mg/dL (LDL-C of <70 mg/dL) is considered a therapeutic option. Test Performed at: [facility] [address] [place] [address] ??[phone] Skye Sierra MD Blood 12/16/2022 8:02 AM CDT 12/17/2022 4:10 AM CDT Little Montaño MD CHEMISTRY ORDERABLES [facility] [phone] [facility] [address] * COMPREHENSIVE METABOLIC PANEL (12/16/2022 8:02 AM CDT) GLUCOSE 88 65 - 99 mg/dL [facility] Comment: ? Fasting reference interval BUN 13 7 - 25 mg/dL [facility] CREATININE 1.24 0.60 - 1.26 mg/dL [facility] GFR 80 > OR = 60 mL/min/1. 73m2 [facility] Comment: The eGFR is based on the CKD-EPI 2020 equation. To calculate the new eGFR from a previous Creatinine or Cystatin C result, go to https://www.kidney.org/professionals/ kdoqi/gfr%5Fcalculator BUN/CREAT RATIO NOT APPLICABLE 6 - 22 (calc) [facility] SODIUM 142 135 - 146 mmol/L [facility] POTASSIUM 4.2 3.5 - 5.3 mmol/L [facility] CHLORIDE 108 98 - 110 mmol/L [facility] CO2 27 20 - 32 mmol/L [facility] CALCIUM 9.3 8.6 - 10.3 mg/dL [facility] TOTAL PROTEIN 6.8 6.1 - 8.1 g/dL [facility] ALBUMIN 4.4 3.6 - 5.1 g/dL [facility] GLOBULIN 2.4 1.9 - 3.7 g/dL (calc) [facility] ALBUMIN/GLOBULI N RATIO 1.8 1.0 - 2.5 (calc) [facility] BILIRUBIN TOTAL 0.4 0.2 - 1.2 mg/dL [facility] ALKALINE PHOSPHATASE 69 36 - 130 U/L [facility] AST 21 10 - 40 U/L [facility] ALT 12 9 - 46 U/L [facility] Comment: Test Performed at: [facility] ??[phone] Skye Sierra MD Blood 12/16/2022 8:02 AM CDT 12/17/2022 4:10 AM CDT Little Montaño MD CHEMISTRY ORDERABLES [facility] [phone] [facility] [address] * CBC WITH DIFFERENTIAL (12/16/2022 8:02 AM [...] [facility] Comment: Test Performed at: [facility] ??[phone] Skye Sierra MD Blood 12/16/2022 8:02 AM CDT 12/17/2022 4:10 AM CDT Little Montaño MD HEMATOLOGY ORDERABLE S [facility] [phone] [facility] [address] [place] [address] documented in this encounter Visit Diagnoses Diagnosis Screening for condition- Primary Screening for unspecified condition documented in this encounter
--- OUTSIDE RECORDS SUMMARY | 2024-07-18 06:38 | XMS_ITS | Encounter Summary ---
Author Organization [facility] Address [address] [place] [address] Care Team Providers Care Closing Coordinator Name Role Phone Unavailable Primary Care Provider [...]
--- OUTSIDE RECORDS SUMMARY | 2024-07-18 06:38 | XMS_ITS | Clinical Summary ---
Author Organization [facility] Address [address] [place] [address] Care Team Providers Care Fluoroscope Operator Name Role Phone Unavailable Primary Care [...] to Patient Date of Phone Billing Address [employer] Employer ATTN: VELMA GIVENS [address] [address]
--- OUTSIDE RECORDS SUMMARY | 2024-07-18 06:38 | XMS_ITS | Encounter Summary ---
Author Organization [facility] Address [address] [place] [address] Care Team Providers Care Land Checker Name Role Phone Unavailable Primary Care Provider [...]
--- OUTSIDE RECORDS SUMMARY | 2024-07-18 06:39 | XMS_ITS | Encounter Summary ---
Author Organization [facility] Healthcare Address [address] [place] [address] Care Team Providers Care Business Continuity Planner Name Role Phone Caitlyn Bolden DO Primary Care Provider +1- [phone] Reason for Referral * Procedure (Routine) - Closed Specialty Diagnoses / Procedures Referred By Contac t Referred To Contact Diagnoses SOB (shortness of breath) Wheezing Procedures Pulmonary Function Test -[facility]; Full PFT in PFT Lab w/Stress Ox/6 Min Walk Test Alexia Kong MD [address] [facility] [address] [place] [address] Phone: tel: fax: Referral ID Status Reason Start Date Expiration Date Visits Re quested Visits Authorized [id number] Closed 11/25/2023 12/24/2024 1 1 Reason for Visit * Reason Comments New Patient * Consultation (Routine) - Pending Review Specialty Diagnoses / Procedures Referred By Contac t Referred To Contact Pulmonary Disease / Pulmonology Diagnoses SOB (shortness of breath) Wheezing Caesar Capone MD [address] [place] [address] Phone: tel: fax: [facility] Medical [facility] Pulmonary [place] [address] [place] [address] [place] [address] Phone: tel: fax: Referral ID Status Reason Start Date Expiration Date Visits Requested Visits Authorized [id number] Pending Review Specialty Services Required 11/08/2023 12/08/2024 1 1 Encounter Details Date Type Department Care Team (Late st Contact Info) Description 11/25/2023 10:00 AM CDT Office Visit [facility] Pulmonology [address] [facility] [address] [place] [address] Alexia Kong MD [address] [facility] [address] [place] [address] SOB (shortness of breath); Wheezing Social History Tobacco Use Types Packs/Day Years Used Date Smoking Tobacco: Never Smokeless Tobacco: Never Comments:Pt stated he smokes Marijuana Personal Safety Answer Date Recorded Getting School Help Needed Not on file 11/22 Sex and Gender Information Value Date Recorded Sex Assigned at Not on file 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 Went to [facility] where he was given breathing treatment and discharged with albuterol. Has morning and nightly chest tightness and dyspnea. Uses albuterol, helps sometimes No coughing or wheezing No rhinitis Exposure and Social History: Never smoker or vaping. Smokes marijuana few times per week. Social etoh. Works as warehouse lead. No pets. Review of Systems: OBJECTIVE: Physical [...] of breath) Wheezing Expected: 11/25/2023, Expires: 11/24/2024 Wpsso-1-uguhlwltwei phenotype Lab Routine SOB (shortness of breath) Wheezing Expected: 11/25/2023, Expires: 11/24/2024 Fvcen-3-hmnusrhydrn Lab Routine SOB (shortness of breath) Wheezing Expected: 11/25/2023, Expires: 11/24/2024 Pro B-type natriuretic peptide Lab Routine SOB (shortness of breath) Wheezing Expected: 11/28/2023, Expires: 11/24/2024 documented as of this encounter Results * Pulmonary Function Test - (01/27/2024 2:44 PM CDT) FVC POST 4.54 L 01/27/2024 2:35 PM CDT [facility] FEV1 POST 3.46 L 01/27/2024 2:35 PM CDT [facility] [id number]-BKPQ 76.07 % 01/27/2024 2:35 PM CDT [facility] YPE61-59% POST 2.99 L/s 01/27/2024 2:35 PM CDT [facility] PEF POST 5.90 L/s 01/27/2024 2:35 PM CDT [facility] DLCOc SB 24.27 ml/(min*mm Hg) 01/27/2024 2:35 PM CDT [facility] DLCO/VA PRE 5.00 ml/(min*mm Hg*L) 01/27/2024 2:35 PM CDT [facility] VA 4.85 L 01/27/2024 2:35 PM CDT [facility] TLC PRE 5.48 L 01/27/2024 2:35 PM CDT [facility] VC PRE 4.11 L 01/27/2024 2:35 PM CDT [facility] IC PRE 3.08 L 01/27/2024 2:35 PM CDT [facility] FRC PL PRE 2.39 L 01/27/2024 2:35 PM CDT [facility] ERV PRE 1.02 L 01/27/2024 2:35 PM CDT [facility] RV PRE 1.37 L 01/27/2024 2:35 PM CDT [facility] RAW PRE 7.77 cmH2O*s/L 01/27/2024 2:35 PM CDT [facility] VTG 3.24 L 01/27/2024 2:35 PM CDT [facility] FVC PRE 3.73 L 01/27/2024 2:35 PM CDT [facility] FEV1 PRE 2.58 L 01/27/2024 2:35 PM CDT [facility] ART0MPY-IUB 69.20 % 01/27/2024 2:35 PM CDT [facility] LKH80-50% PRE 1.86 L/s 01/27/2024 2:35 PM CDT [facility] PEF PRE 5.90 L/s 01/27/2024 2:35 PM CDT [facility] Anatomical Region Laterality Modality PFT 01/27/2024 1:30 [...] ambulation. Electronically signed by Walter Velasquez MD, [facility] Pulmonary and Critical Care Medicine [facility] Medical Group us Alexia Kong MD PFT ORDERABLES Final Result documented in this encounter Visit Diagnoses Diagnosis SOB (shortness of breath) Shortness of breath Wheezing SOB (shortness of breath) Shortness of breath Wheezing documented in this encounter Orders Outpatient Referral Count Last Ordered Date Fir st Ordered Date AMB REFERRAL TO PULMONOLOGY 1 11/25/2023 documented in this encounter Care Teams Business Continuity Planner Relationship Specialty Start Date End Date Caitlyn Bolden DO [facility] [place] [address] PCP - General Internal Medicine 01/04/21 documented as of this encounter
--- OUTSIDE RECORDS SUMMARY | 2024-07-18 06:39 | XMS_ITS | Encounter Summary ---
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 * Shortness of Breath (AfterCare(R) Instructions(ER/ED)) (Ecuadorean) documented in this encounter Medications at Time [...] with voice recognition software. Occasional wrong-word or 'bquer-c-cxpd' substitutions may have occurred due to the [...] by myself in the absence of a transcriber) Normal sinus rhythm with a normal rate [...] been completed with a voice recognition program. Cottonseed Meat Presser errors occur. Please contact me for any [...] METABOLIC PANEL STAT 11/11/2022 8:34 PM CDT [place] [facility] ILL/INJURED PATIENT INIT 30-74 MIN [...] PM T: ??11/11/2022 9:16 PM Report ID: [id number] Reading Location: ??[id number] Procedure Note Adonis June, DO - 11/11/2022 [...] Adonis June M.D. MF: EMANUEL Report ID: [id number] Reading Location: [place] [address] us Shayla Carlos MD IMG XR PROCEDURES Final Result * ECG 12 lead (11/11/2022 8:36 PM CDT) 11/11/2022 8:36 PM CDT Narrative [facility] - 11/12/2022 7:29 AM CDT Vent Rate: 75 bpm RR Interval: 797 msec [place] Interval: 144 msec QRS Duration: 90 msec QT Interval: 365 msec QTC Interval: 394 msec P-R-T Gable: 72 - 91 - 46 degrees SINUS RHYTHM WITH MARKED SINUS ARRHYTHMIA BORDERLINE RIGHT AXIS DEVIATION ??[QRS AXIS > 90] EARLY REPOLARIZATION ??[ST ELEVATION WITH NORMALLY INFLECTED T-WAVE] Baseline artifact No previous EKG for comparison Electronically Signed By: Dr Mehdi Viera us Shayla Carlos MD ECG ORDERABLES Final Re sult [facility] * eGFR (11/11/2022 8:34 PM CDT) eGFR [...] LAB BLOOD ORDERABLES Fin al Result [facility] 1 [facility] Department [place] [address] * Differential, auto (11/11/2022 8:34 PM CDT) Neutrophil abs 4.3 1.7 - 6.5 K/cumm [facility] Imm gran abs 0.0 0.0 - 0.1 K/cumm [facility] Lymphocyte abs 2.7 0.8 - 3.3 K/cumm [facility] Monocyte abs 0.5 0.2 - 0.8 K/cumm [facility] ([place] Eosinophil abs 0.5 0.0 - 0.5 K/cumm [...] BLOOD ORDERABLES Fin al Result [facility] ([place]) 1 [facility] Department [place] [address] * D-dimer, quantitative (11/11/2022 8:34 PM CDT) D-Dimer <215 <=499 ng/mL [facility] Comment: Interpretive data FDA approved the [...] MD LAB BLOOD ORDERABLES Fin al Result [facility] 1 [facility] Department [place] [address] * Comprehensive metabolic panel (11/11/2022 8:34 PM CDT) Sodium 143 135 - 145 mmol/L [facility] ([place] Potassium, pl 3.7 3.3 - 4.9 mmol/L [facility] ([place] Chloride 106 97 - 110 mmol/L [facility]) CO2 26 22 - 32 mmol/L [facility] ([place] Anion gap 12 2 - 15 mmol/L [facility] ([place] BUN 12 8 - 25 mg/dL [facility] ([place] Creatinine 1.22 0.80 - 1.30 mg/dL [facility] ([place] Glucose 107 70 - 199 mg/dL [facility] ([place] Comment: Interpretive Data Fasting glucose >/= [...] Fin al Result [facility] ([place]) 1 [facility] Department [place] [address] * CBC with auto differential (11/11/2022 8:34 [...] ([place]) MCH 29.4 27.1 - 33.3 pg [facility] ([place] MCHC 33.6 32.3 - 35.7 g/dL [facility] ([place] RDW CV 12.2 11.1 - 14.9 % [facility] ([place] RDW SD 39.0 35.7 - 48.1 fL [facility] ([place] NRBC abs 0.00 0.00 - 0.01 K/cumm [facility] ([place] Blood 11/11/2022 8:34 PM CDT 11/11/2022 8:39 PM CDT us Shayla Carlos MD LAB BLOOD ORDERABLES Fin al Result [facility] 1 [facility] Department [place] [address] * Influenza A/B, RSV, and COVID-19 PCR Nasopharyngeal (11/11/2022 8:34 PM CDT) COVID-19 RNA Negative Negative [facility] ([place] Influenza A RNA Negative Negative [facility]) Influenza B RNA Negative Negative [facility] RSV RNA Negative Negative [facility] ([place] Comment: Interpretive data: This test is performed using the [employer] Xpert Xpress CoV-2/Flu/RSV plus assay. This is [...] PM CDT 11/11/2022 8:39 PM CDT Narrative [facility] ([place] - 11/11/2022 9:23 PM CDT Is the Patient experiencing symptoms consistent with COVID?->Unknown Reason for testing?->Bed placement or semi-private room us Shayla Carlos MD LAB MICROBIOLOGY - GENER AL ORDERABLES Final Result [facility] [place] 1 [facility] Department [place] [address] * [place] [facility] ILL/INJURED PATIENT INIT 30-74 MIN (11/11/2022 8:27 PM CDT) Narrative Shayla Carlos MD - 11/11/2022 8:27 PM CDT Shayla Carlos MD ? 11/12/2022 ??1:27 AM Critical Care Performed by: Shayla Carlos MD Authorized by: Shayla Carlos MD ?? [...] solution 5 mg 5 mg, nebulization, Once (newspaper correspondent), On Wed11/11/22 at 221, For 1 dose [...] solution 0.5 mg 0.5 mg, nebulization, Once (newspaper correspondent), On Wed11/11/22 at 2215, For 1 dose Given 11/11/2022 10:22 PM CDT 0.5 mg ipratropium-albuteroL (DUO-NEB) 0.5-2.5 mg/3 mL nebulizer solution 3 mL 3 mL, nebulization, Once (newspaper correspondent), On Wed11/11/22 at 2024, For 1 dose, [...] solution 2.5 mg 2.5 mg, nebulization, Once (newspaper correspondent), On Wed11/11/22 at 2215, For 1 dose, This therapy was substituted for albuterol MDI 2 puffs per protocol. 2215 (Due) albuterol 2.5 mg/0.5 mL nebulizer solution 5 mg (COMPLETED) 5 mg, nebulization, Once (newspaper correspondent), On Wed11/11/22 at 2215, For 1 dose [...] 0.5 mg (COMPLETED) 0.5 mg, nebulization, Once (newspaper correspondent), On Wed11/11/22 at 2215, For 1 dose 2221 (Given - Provider: Maximiliano Chagn RRT) ipratropium-albuteroL (DUO-NEB) 0.5-2.5 mg/3 mL nebulizer solution 3 mL (COMPLETED) 3 mL, nebulization, Once (newspaper correspondent), On Wed11/11/22 at 2024, For 1 dose, [...] documented as of this encounter Care Teams Superintendent Sanitation Relationship Specialty Start Date End Date Caitlyn Bolden DO [facility] [place] [address] PCP - General Internal Medicine 01/04/21 documented as of this encounter
--- OUTSIDE RECORDS SUMMARY | 2024-07-18 06:39 | XMS_ITS | Encounter Summary ---
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
--- OUTSIDE RECORDS SUMMARY | 2024-07-18 06:39 | XMS_ITS | Encounter Summary ---
Author Organization 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 [facility] (Hepatitis C testing, HIV testing) [address], [place] [phone] [facility] (Hepatitis C testing, HIV testing) Walk in services, no residecne required, Fee, ID required [address], [place]. [phone] [facility] (Hepatitis C Testing, HIV testing) Appointments, fee, no residency, conventional/rapid testing [address], [place]. [phone] [facility] (HIV testing, Hepatitis testing, gardisil, , control, STDs) [address] [place]. [address] Appointments only, no residence required, fee, Picture ID [facility] [address] [place], [place]. [phone] Appointment, fee, photo ID [facility] [address] [place]. [address] Appointment, fee, sliding scale, picture ID documented [...] home This examination was transcribed using the NeuroQuest voice recognition system without human family court registrar. In an effort to expedite patient care, this report has not been adjusted for typographical, grammatical, and syntax by a trained medical dir. Clinical Impression: STD (male) Selam Vaughn PA [...] Amplification Urine (01/04/2021 9:29 AM CDT) Pathologist [facility] [place] C. trachomatis Detected( A) Not Detected EILEEN SALINAS Comment:Testing performed by : [facility], [address] [place] [address]., [address] N. gonorrhoeae Detected( A) Not Detected EILEEN SALINAS Comment: Testing performed by the [facility]. This assay detects Chlamydia trachomatis and Neisseria gonorrhoeae by nucleic acid amplification testing (NAAT). This test is approved by the [facility] Food and Drug Administration and the performance characteristics have been verified by the laboratory. The performance characteristics of this test have not been evaluated in women or individuals less than 16 years of age. Testing performed by: [facility], [address] [place] [address]., [address] Urine (None) 01/04/2021 9:29 AM CDT 01/05/2021 9:18 PM CDT [facility]am [facility] MICROBIOLOGY - GENERAL O RDERABLES Final Result EILEEN SALINAS [facility] Department [place] [address] * Trichomonas vaginalis PCR Urine (01/04/2021 9:29 AM CDT) Pathologist [facility] [place] Trichomonas DNA Not Detected Not Detected EILEEN SALINAS Comment: Interpretive Data Testing performed by [facility] using Nucleic Acid Amplification with the [employer] Xpert TV Assay. ??This assay detects DNA from Trichomonas vaginalis using Real-Time PCR. ??This test is cleared by the [facility] Food and Drug Administration for endocervical swabs, vaginal swabs, female urine (first-catch), and male urine (first-catch). ??The performance characteristics for these specimen types have been verified by the [facility]. ??Excess blood in specimens may be inhibitory and result in false negative results. ??The performance of this test has not been evaluated in women or individuals less than 18 years of age. Current Interpretive Data was last revised on 2019. Testing performed by: [facility], [address] [place]., [address] Urine 01/04/2021 9:29 AM CDT 01/04/2021 11:26 AM CDT us Selam [facility] MICROBIOLOGY - GENERAL O RDERABLES Final Result EILEEN [address] [facility] Department [place] [address] documented in this encounter Visit [...] RN) documented in this encounter Care Teams Six Color Press Operator Relationship Specialty Start Date End Date Caitlyn Bolden DO [facility] [place], [place] [id number] PCP - General Internal Medicine 01/04/21 documented as of this encounter
== END 2024-07-11 08:50 | disposition home or self-care (01) ==
PROVIDERS: Emergency Medicine; Emergency Provider Student in an Organized Health Care Education/Training Program
DX: J40 Bronchitis, not specified as acute or chronic (principal); R09.81 Nasal congestion; Z20.822 Contact with and (suspected) exposure to COVID-19
CPT/HCPCS: 71046; 87637; 87651; 94640; 96372; 99283; A9270; J2919

== ENCOUNTER 2025-03-13 12:56 | Emergency (ER) | payer OTHER, SELFPAY ==
--- NOTE | ~2025-03-13 | XR_ITS ---
XR knee LT min 4V 03/13/2025 15:07 INDICATION: Left knee pain PROCEDURE: 4 views left knee COMPARISON: No prior studies for comparison. FINDINGS: Fracture, dislocation or subluxation is not identified. The soft tissues appear within normal limits. No foreign bodies are identified. IMPRESSION: 1: NO ACUTE BONE OR JOINT ABNORMALITY IDENTIFIED. Reviewed, dictated and finalized at location O.
[2025-03-13 12:58] VITALS: BP 122/84; PULSE 56; RESP 16; TEMP 36.8; O2SAT 100
--- OUTSIDE RECORDS SUMMARY | 2025-03-13 13:08 | XMS_ITS | Clinical Summary ---
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 Gender Identity Not on file Sexual Orientation Not on file Obstetrics History Last Filed Vital Signs Vital Sign Reading Time Taken Comments Blood Pressure 118/79 11/25/2023 10:07 AM CDT Pulse 65 11/25/2023 10:07 AM CDT Temperature 36.2 C (97.2 F) 11/25/2023 10:07 AM CDT Respiratory Rate 20 11/25/2023 10:0 7 AM CDT Oxygen Saturation 97% 01/27/2024 2:3 0 PM CDT albuterol neb with PFT per protocol Inhaled Oxygen Concentration - - Weight 73.1 kg (161 lb 3.2 oz) 11/25/2023 10:07 AM CDT Height 165.1 cm (5' 5) 11/11/2022 8:19 PM CDT Body Mass Index 26.83 11/11/2022 8:19 PM CDT Plan of Treatment Health Maintenance Due Date Last Done Comments Depression Screening 1992 Hepatitis C Screening 1992 Varicella Vaccines (1 of 2 - 13+ 2-dose series) 2005 Regular Well Visit/Exam 18-64 2010 DTaP/Tdap/Td Vaccine (7 - Td or Tdap) 04/27/2016 04/27/2006, 12/20/1997, 04/01/1994, Additional history exists HPV Vaccines (1 - 3-dose SCDM series) 12/13/2019 Influenza Vaccine (#1) 2025 04/27/2006 Hepatitis B Screening Completed 08/11/1993 , 02/10/1993, 01/21/1993 Pneumococcal vaccine <65 Aged Out No longer eligible based on patient's age to complete this topic Insurance [employer] [address] [place] [id number] [facility]LY [facility] ALLEGIANCE Care Teams Klystrom Tube Tester Relationship Specialty Start Date End Date Caitlyn Bolden DO PCP - General Internal Medicine 01/04/21
--- OUTSIDE RECORDS SUMMARY | 2025-03-13 13:08 | XMS_ITS | Clinical Summary ---
Author Organization [facility] Address [address] [place] [address] Care Team Providers Care Customer Records Division Supervisor Name Role Phone None, Provider MD Primary Care Provider Unavaila ble Allergies Active Allergy Reactions Criticality Noted Date Comments Nickel Rash Low 03/15/2022 Social History Tobacco Use Types Packs/Day Years Used Date Smoking Tobacco: Never Smokeless Tobacco: Never Alcohol Use Standard Drinks/Week Comments Yes 0 (1 standard drink = 0.6 oz pur e alcohol) weekly Sex and Gender Information Value Date Recorded Sex Assigned at Not on file Legal Sex Male 11:34 AM CDT Gender Identity Not on file Sexual Orientation Not on file Last Filed Vital Signs Vital Sign Reading Time Taken Comments Blood Pressure 114/73 03/15/2022 11:46 AM CDT Pulse 58 03/15/2022 11:46 AM CDT Temperature 37 C (98.6 F) 03/15/2022 11:46 AM CDT Respiratory Rate 18 03/15/2022 11:4 6 AM CDT Oxygen Saturation 97% 03/15/2022 11: 46 AM CDT Inhaled Oxygen Concentration - - Weight 74.8 kg (164 lb 14.5 oz) 022 11:46 AM CDT Height 167.6 cm (5' 6) 03/15/2022 11:4 6 AM CDT Body Mass Index 26.62 03/15/2022 11:46 AM CDT Plan of Treatment Health Maintenance Due Date Last Done Comments Hepatitis B Vaccines (3 of 3 - 3-dose series) 10/06/1993 08/11/1993, 02/10/1993, 01/21/1993 Annual Physical 12/13/1995 Hepatitis C 2010 DTaP, Tdap and Td Vaccines (6 - Td or Tdap) 04/27/2016 04/27/2006, 12/20/1997, 04/01/1994, Additional history exists HPV Vaccines (1 - 3-dose SCDM series) 12/13/2019 COVID-19 Vaccine ( - 2023- season) 2024 Meningococcal B Vaccine Aged Out No l onger eligible based on patient's age to complete this topic Meningococcal Vaccine Aged Out No randy shawn eligible based on patient's age to complete this topic Pneumococcal Vaccine: Pediatrics (0 to 5 Years) and At-Risk Patients (6 to 49 Years) Aged Out No longer eligible based on patient's age to complete this topic RSV Immunizations Under 20 Months Aged Out No longer eligible based on patient's age to complete this topic Insurance [facility] [address] Care Teams Customer Records Division Supervisor Relationship Specialty Start Date End Date None, Provider, PCP - General 03/15/22
--- OUTSIDE RECORDS SUMMARY | 2025-03-13 13:08 | XMS_ITS | Clinical Summary ---
Author Organization [facility] [place] Address [address] [address] Care Team Providers Care Climatologist Name Role Phone Unavailable Primary Care Provider Unavailabl e Active Problems No known active problems Encounters Date Type Department Care Team Description 02/13/2025 External Device Data [facility] ABSTRACTION Provider, Abstract 01/24/2025 External Device Data [facility] ABSTRACTION Provider, Abstract 01/23/2025 External Device Data [facility] ABSTRACTION Provider, Abstract 01/09/2025 External Device Data [facility] ABSTRACTION Provider, Abstract 12/27/2024 External Device Data [facility] ABSTRACTION Provider, Abstract from Last 3 Months Social History Tobacco Use Types Packs/Day Years Used Date Smoking Tobacco: Never Assessed Sex and Gender Information Value Date Recorded Sex Assigned at Not on file Legal Sex Male 2:22 PM CDT Gender Identity Not on file Sexual Orientation Not on file Last Filed Vital Signs Vital Sign Reading Time Taken Comments Blood Pressure 112/68 12/16/2022 8:05 AM CDT Pulse - - Temperature - - Respiratory Rate - - Oxygen Saturation - - Inhaled Oxygen Concentration - - Weight 76.2 kg (168 lb) 12/16/2022 8:05 AM CDT Height 167.6 cm (5' 6) 12/16/2022 8:05 AM CDT Body Mass Index 27.12 12/16/2022 8:05 AM CDT Plan of Treatment Health Maintenance Due Date Last Done Comments HEPATITIS B VACCINES (1 of 3 - 19+ 3-dose series) 12/13/2011 10/12/2015, 09/10/2014, 08/09/2014 HPV VACCINES (1 - 3-dose SCD M series) 12/13/2019 DTAP/TDAP/TD VACCINES (2 - T d or Tdap) 08/09/2024 08/09/2014 INFLUENZA VACCINE (#1) 2025 9, 10/12/2015, 05/13/2014 Insurance [employer] OPEN ACCESS
--- NOTE | 2025-03-13 14:49 | ED_ITS ---
HPI - Extremity Problem General Chief complaint: Extremity Problem,Nontraumatic <ZEHRA Abbott Last Filed: 03/13/25 14:53> Stated complaint: L knee issue <ZEHRA Abbott Last Filed: 03/13/25 14:53> Time Seen by Provider: 03/13/25 14:51 <ZEHRA Abbott Last Filed: 03/13/25 14:53> Focused HPI: Patient is a 34-year-old male who presents the ED with report of left knee pain. Patient reports he squatted fully down to the ground yesterday and felt a snap crackle pop in his L knee. States he has had pain with flexion of his left knee, going up and down stairs since then. Denies significant pain with walking, but states his knee feels unstable. Denies any other injuries/numbness. GENERAL: Well-appearing, well-nourished, and in no acute distress. HEAD: Normocephalic, atraumatic. CHEST: Clear to auscultation. ?No respiratory distress. HEART: Regular rate and rhythm.? MSK: Mild TTP in inferior medial knee joint space as well as lateral superior joint space. Mild limited flexion ROM of L knee d/t pain, full extension w/o pain. No significant swelling. NEURO: ?Alert and oriented x3. Patient screened in triage and initial orders placed.? ?Additional care and disposition to be based upon?diagnostic testing and treatment. <ZEHRA Abbott Last Filed: 03/13/25 14:53> Source: patient <ZEHRA Abbott Last Filed: 03/13/25 14:53> Mode of arrival: ambulatory <ZEHRA Abbott Last Filed: 03/13/25 14:53> Limitations: no limitations <ZEHRA Abbott Last Filed: 03/13/25 14:53> Related Data Allergies/Adverse reactions: Allergies Allergy/AdvReac Type Severity Reaction Status Date / Time nickel Allergy Rash Verified 07/11/24 08:00 <ZEHRA Abbott Last Filed: 03/13/25 14:53> [facility] Past Medical History Medical History: Medical History Healthy adult male <Mellisa Corley PA-C - Last Filed: 03/13/25 14:53> Surgical History Surgical History: Surgical History No history of previous surgery <Mellisa Corley PA-C - Last Filed: 03/13/25 14:53> Exam Narrative: APPEARANCE: No apparent distress. Head: atraumatic. EYES: EOMI, NOSE: Atraumatic NECK: Trachea midline RESPIRATORY: No increased rate of breathing CARDIOVASCULAR: RRR, ABDOMINAL: Non-distended MUSCULOSKELETAl: Focal exam of the left knee revealed minor swelling in the infrapatellar region. No warmth. No weakness. Leg is neurovascularly intact. NEURO: Alert. Moving 4/4 extremities SKIN:: Warm, dry. Normal color PSYCHIATRIC: Normal affect <Félix Torrez MD - Last Filed: 03/13/25 15:49> Course Vital Signs Vital signs: Vital Signs Temperature 98.3 F 03/13/25 12:58 Pulse Rate 56 L 03/13/25 12:58 Respiratory Rate 16 03/13/25 12:58 Blood Pressure 122/84 03/13/25 12:58 Pulse Oximetry 100 03/13/25 12:58 Oxygen Delivery Room Air 03/13/25 12:58 Temperature 98.3 F 03/13/25 12:58 Pulse Rate 56 L 03/13/25 12:58 Respiratory Rate 16 03/13/25 12:58 Blood Pressure 122/84 03/13/25 12:58 Pulse Oximetry 100 03/13/25 12:58 Oxygen Delivery Room Air 03/13/25 12:58 <Mellisa Corley PA-C - Last Filed: 03/13/25 14:53> Vital Signs Temperature 98.3 F 03/13/25 12:58 Pulse Rate 56 L 03/13/25 12:58 Respiratory Rate 16 03/13/25 12:58 Blood Pressure 122/84 03/13/25 12:58 Pulse Oximetry 100 03/13/25 12:58 Oxygen Delivery Room Air 03/13/25 12:58 Temperature 98.3 F 03/13/25 12:58 Pulse Rate 56 L 03/13/25 12:58 Respiratory Rate 16 03/13/25 12:58 Blood Pressure 122/84 03/13/25 12:58 Pulse Oximetry 100 03/13/25 12:58 Oxygen Delivery Room Air 03/13/25 12:58 <Félix Torrez MD - Last Filed: 03/13/25 15:49> MDM - Extremity (Nontraumatic) MDM Narrative Medical decision making narrative: MSE by DESTIN in triage. <Mellisa Corley PA-C - Last Filed: 03/13/25 14:53> MSE by DESTIN in triage. -Course: 34-year-old male presenting with knee pain after squatting. Physical exam showed pain on extremes of movement. No significant swelling. He is able to ambulate. Findings concerning for internal derangement/meniscal injury. Gonzalez l trial a course of NSAIDs and given orthopedic follow-up. Given return precautions. -DDX includes but is not limited to: Bony injury, internal derangement, knee effusion <Félix Torrez MD - Last Filed: 03/13/25 15:49> Discharge Plan Discharge Clinical Impression: Acute knee pain <Mellisa Corley PA-C - Last Filed: 03/13/25 14:53> Patient Disposition: Home <Mellisa Corley PA-C - Last Filed: 03/13/25 14:53> Condition: Stable <Mellisa Corley PA-C - Last Filed: 03/13/25 14:53> Instructions: Antibiotic Form, Knee Sprain (ED) <Mellisa Corley PA-C - Last Filed: 03/13/25 14:53> Additional Instructions: You were seen in the emergency department for knee pain. Please use Motrin, Tylenol and Robaxin for pain. Please follow-up with the orthopedic surgeon below if your pain is 1 week. If you develop any worsening symptoms such as severe pain or weakness in her leg please return to the ED for re- evaluation. <Mellisa Corley PA-C - Last Filed: 03/13/25 14:53> Patient Language: Bangladeshi <Mellisa Corley PA-C - Last Filed: 03/13/25 14:53> Prescriptions: New acetaminophen 500 mg tablet 1,000 mg PO TID PRN (Reason: fabiola) 7 Days Qty: 42 0RF ibuprofen 800 mg tablet 800 mg PO TID PRN (Reason: pain) 7 Days Qty: 21 0RF methocarbamol 750 mg tablet 1,500 mg PO TID Qty: 45 0RF No Action cyclobenzaprine 10 mg tablet 10 mg PO TID PRN (Reason: muscle spasm) Qty: 20 0RF naproxen 375 mg tablet 375 mg PO BID Qty: 14 0RF albuterol sulfate 90 mcg/actuation HFA aerosol inhaler 2 puff inhalation QID PRN (Reason: shortness of breath or wheezing) Qty: 6.7 0RF acetaminophen 500 mg tablet 500 mg PO Q6H PRN (Reason: pain) Qty: 30 0RF amoxicillin-pot clavulanate 875-125 mg tablet 1 tablet PO Q12H 10 Days Qty: 20 0RF cyclobenzaprine 10 mg tablet 10 mg PO BID PRN (Reason: muscle spasm) Qty: 14 0RF amoxicillin-pot clavulanate 875-125 mg tablet 1 tablet PO Q12H 10 Days Qty: 20 0RF prednisone 20 mg tablet 40 mg PO DAILY 5 Days Qty: 10 0RF ProAir RespiClick 90 mcg/actuation aerosol powdr breath activated 1 inh inhalation Q4-6H PRN (Reason: shortness of breath or wheezing) Qty: 1 0RF benzonatate 100 mg capsule 100 mg PO BID PRN (Reason: cough) Qty: 20 0RF dextromethorphan HBr 10 mg/5 mL liquid 10 mg PO QHS PRN (Reason: cough) Qty: 118 0RF guaifenesin 200 mg tablet 200 mg PO QID PRN (Reason: cough) Qty: 30 0RF <Mellisa Corley PA-C - Last Filed: 03/13/25 14:53> Follow-up/Referrals: PHYSICIAN NOT ON STAFF,NONSTAFF [Primary Care Provider] <Mellisa Corley PA-C - Last Filed: 03/13/25 14:53>
--- NOTE | 2025-03-13 15:42 | ED_ITS ---
HPI - General Adult General Chief complaint: Extremity Problem,Nontraumatic Stated complaint: L knee issue Time Seen by Provider: 03/13/25 14:51 Source: patient Mode of arrival: ambulatory Limitations: no limitations History of Present Illness HPI narrative: This is a 34-year-old male presenting with left knee pain. Patient has quieted down to fix is clearly yesterday while barbecuing. He felt a snap, crackle and pop in his knee. Now he is having pain at the extremes of range of motion when he moves. No history of meniscal tears. No other injuries. He is not taking for pain control. Related Data Allergies Allergy/AdvReac Type Severity Reaction Status Date / Time nickel Allergy Rash Verified 07/11/24 08:00 [facility] Past Medical History Medical History Healthy adult male Surgical History Surgical History No history of previous surgery Exam Narrative: APPEARANCE: No apparent distress. Head: atraumatic. EYES: EOMI, NOSE: Atraumatic NECK: Trachea midline RESPIRATORY: No increased rate of breathing CARDIOVASCULAR: RRR, ABDOMINAL: Non-distended MUSCULOSKELETAl: Focal exam of the left knee revealed minor swelling in the infrapatellar region. No warmth. No weakness. Leg is neurovascularly intact. NEURO: Alert. Moving 4/4 extremities SKIN:: Warm, dry. Normal color PSYCHIATRIC: Normal affect Course Vital Signs Vital signs: Vital Signs Temperature 98.3 F 03/13/25 12:58 Pulse Rate 56 L 03/13/25 12:58 Respiratory Rate 16 03/13/25 12:58 Blood Pressure 122/84 03/13/25 12:58 Pulse Oximetry 100 03/13/25 12:58 Oxygen Delivery Room Air 03/13/25 12:58 Temperature 98.3 F 03/13/25 12:58 Pulse Rate 56 L 03/13/25 12:58 Respiratory Rate 16 03/13/25 12:58 Blood Pressure 122/84 03/13/25 12:58 Pulse Oximetry 100 03/13/25 12:58 Oxygen Delivery Room Air 03/13/25 12:58 Medical Decision Making [facility] Narrative Medical decision making narrative: -Course: -DDX includes but is not limited to: -Co-morbidities complicating care: -Social determinants of health: -External Chart Review: -Hx from independent Sources: -Independent interpretation of studies: -Discussion of Management/Consultants: -Dx tests considered but not ordered: -Procedures: -Interventions: -Shared decision making / Disposition: -RX Vital Signs Vital Signs: Vital Signs Temperature 98.3 F 03/13/25 12:58 Pulse Rate 56 L 03/13/25 12:58 Respiratory Rate 16 03/13/25 12:58 Blood Pressure 122/84 03/13/25 12:58 Pulse Oximetry 100 03/13/25 12:58 Oxygen Delivery Room Air 03/13/25 12:58 Temperature 98.3 F 03/13/25 12:58 Pulse Rate 56 L 03/13/25 12:58 Respiratory Rate 16 03/13/25 12:58 Blood Pressure 122/84 03/13/25 12:58 Pulse Oximetry 100 03/13/25 12:58 Oxygen Delivery Room Air 03/13/25 12:58 Discharge Plan Discharge Patient Language: Palestinian Prescriptions: No Action cyclobenzaprine 10 mg tablet 10 mg PO TID PRN (Reason: muscle spasm) Qty: 20 0RF naproxen 375 mg tablet 375 mg PO BID Qty: 14 0RF albuterol sulfate 90 mcg/actuation HFA aerosol inhaler 2 puff inhalation QID PRN (Reason: shortness of breath or wheezing) Qty: 6.7 0RF acetaminophen 500 mg tablet 500 mg PO Q6H PRN (Reason: pain) Qty: 30 0RF amoxicillin-pot clavulanate 875-125 mg tablet 1 tablet PO Q12H 10 Days Qty: 20 0RF cyclobenzaprine 10 mg tablet 10 mg PO BID PRN (Reason: muscle spasm) Qty: 14 0RF amoxicillin-pot clavulanate 875-125 mg tablet 1 tablet PO Q12H 10 Days Qty: 20 0RF prednisone 20 mg tablet 40 mg PO DAILY 5 Days Qty: 10 0RF ProAir RespiClick 90 mcg/actuation aerosol powdr breath activated 1 inh inhalation Q4-6H PRN (Reason: shortness of breath or wheezing) Qty: 1 0RF benzonatate 100 mg capsule 100 mg PO BID PRN (Reason: cough) Qty: 20 0RF dextromethorphan HBr 10 mg/5 mL liquid 10 mg PO QHS PRN (Reason: cough) Qty: 118 0RF guaifenesin 200 mg tablet 200 mg PO QID PRN (Reason: cough) Qty: 30 0RF Follow-up/Referrals: PHYSICIAN NOT ON STAFF,NONSTAFF [Primary Care Provider]
[2025-03-13] MEDS: IBUPROFEN 400 MG TABLET 800 MG PO (15:55)
[2025-03-13] MEDS: ACETAMINOPHEN 500 MG TABLET 1000 MG PO (15:55)
--- OUTSIDE RECORDS SUMMARY | 2025-03-13 15:59 | XMS_ITS | Clinical Summary ---
Author Organization [facility] [employer] [place] Address [address] [address] Care Team Providers Care Truck Supervisor Name Role Phone Unavailable Primary Care Provider [...]
--- OUTSIDE RECORDS SUMMARY | 2025-03-13 15:59 | XMS_ITS | Clinical Summary ---
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
[2025-03-13 16:10] VITALS: BP 116/76; PULSE 55; RESP 16; TEMP 36.9; O2SAT 99
== END 2025-03-13 16:20 | disposition home or self-care (01) ==
PROVIDERS: Emergency Provider Emergency Medicine
DX: M25.562 Pain in left knee (principal)
CPT/HCPCS: 73564; 99283; A9270